=== PATIENT | female | born 1935 | race Caucasian/White ===

== ENCOUNTER → 2018-09-01 | Outpatient (CLI) | payer MEDICARE, OTHER ==
[~2018-09-01] MED LIST: DENOSUMAB 60 MG/ML 1 ML SYRINGE SQ PRN
[2018-09-01 10:25] VITALS: BP 154/73; PULSE 57; RESP 16; TEMP 97.8
== END | disposition home or self-care (01) ==
LOC: PROCWHC3 10:00
PROVIDERS: ATTEND Internal Medicine
DX: M81.0 Age-related osteoporosis without current pathological fracture (principal)
CPT/HCPCS: 96372; J0897

== ENCOUNTER → 2019-03-02 | Outpatient (CLI) | payer MEDICARE, OTHER ==
[~2019-03-02] MED LIST changes: +DENOSUMAB 60 MG/ML 1 ML SYRINGE SQ NR; -DENOSUMAB 60 MG/ML 1 ML SYRINGE SQ PRN
[2019-03-02 11:17] VITALS: BP 150/70; PULSE 61; RESP 16; TEMP 97.8
== END | disposition home or self-care (01) ==
LOC: PROCWHC3 11:02
PROVIDERS: ATTEND Internal Medicine
DX: M81.0 Age-related osteoporosis without current pathological fracture (principal)
CPT/HCPCS: 96372; J0897

== ENCOUNTER → 2019-09-13 | Outpatient (CLI) | payer MEDICARE, OTHER ==
[2019-09-13 11:16] VITALS: BP 117/53; PULSE 52; RESP 16; TEMP 98.4
== END ==
LOC: PROCWHC3 10:51
PROVIDERS: ATTEND Internal Medicine
DX: M81.0 Age-related osteoporosis without current pathological fracture (principal)
CPT/HCPCS: 96372; J0897

== ENCOUNTER → 2020-03-29 | Outpatient (CLI) | payer MEDICARE, OTHER ==
[2020-03-29 13:56] VITALS: BP 161/85; PULSE 66; RESP 16; TEMP 98.3
== END | disposition home or self-care (01) ==
LOC: PROCWHC3 13:31
PROVIDERS: ATTEND Internal Medicine
DX: M81.0 Age-related osteoporosis without current pathological fracture (principal)
CPT/HCPCS: 96372; J0897

== ENCOUNTER → 2020-10-17 | Outpatient (CLI) | payer MEDICARE, OTHER ==
[2020-10-17 14:15] VITALS: BP 93/60; PULSE 61; RESP 18; TEMP 97.6
== END | disposition home or self-care (01) ==
LOC: PROCWHC3 13:46
PROVIDERS: ATTEND Internal Medicine
DX: M81.0 Age-related osteoporosis without current pathological fracture (principal)
CPT/HCPCS: 96372; J0897

== ENCOUNTER → 2021-03-26 | Outpatient (CLI) | payer MEDICARE, OTHER ==
--- NOTE | 2021-03-26 10:52 | US ---
EXAMINATION TYPE: US venous doppler duplex LE DATE OF EXAM: 03/26/2021 9:38 AM COMPARISON: NONE CLINICAL HISTORY: L89.893 Pressure ulcer of other site, stage 3. SIDE PERFORMED: Bilateral TECHNIQUE: The lower extremity deep venous system is examined utilizing real time linear array sonog homero with graded compression, doppler sonography and color-flow sonography. VESSELS IMAGED: Common Femoral Vein Deep Femoral Vein Greater Saphenous Vein * Femoral Vein Popliteal Vein Proximal Calf Veins (* superficial vessels) Right Leg: Appears negative for DVT Left Leg: Appears negative for DVT IMPRESSION: No sonographic evidence for deep vein thrombosis of either lower extremity.
--- NOTE | 2021-03-27 09:55 | P.ARTDOP ---
Arterial Doppler LOWER EXTREMITY ARTERIAL DOPPLER: DATE OF SERVICE: 03/26/2021 Reason for study: Right foot ulcer. Doppler waveforms: Multiphasic at the right femoral and popliteal and throughout on the left.. Pulse volume recording: []. Pressure gradients: Only at the foot level. Ankle-brachial indices: Cannot occlude. 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 Waveforms suggest only mild effect on flow of occlusive disease. Clinical correlation recommended
== END | disposition home or self-care (01) ==
LOC: RADUSWWP 09:04
PROVIDERS: ATTEND Internal Medicine Infectious Disease
DX: L89.893 Pressure ulcer of other site, stage 3 (principal)
CPT/HCPCS: 93922; 93970

== ENCOUNTER → 2022-06-04 | Outpatient (CLI) | payer MEDICARE, OTHER ==
--- NOTE | 2022-06-04 14:31 | US ---
EXAMINATION TYPE: US venous doppler duplex LE DATE OF EXAM: 06/04/2022 1:52 PM COMPARISON: US CLINICAL HISTORY: E11.621 TYPE 2 DM. Swelling SIDE PERFORMED: Bilateral TECHNIQUE: The lower extremity deep venous system is examined utilizing real time linear array sonog homero with graded compression, doppler sonography and color-flow sonography. VESSELS IMAGED: Common Femoral Vein Deep Femoral Vein Greater Saphenous Vein * Femoral Vein Popliteal Vein Small Saphenous Vein * Proximal Calf Veins (* superficial vessels) Right Leg: Negative for DVT Left Leg: Negative for DVT IMPRESSION: No evidence for DVT.
--- NOTE | 2022-06-05 06:36 | US ---
EXAMINATION TYPE: US arterial LE single level DATE OF EXAM: 06/04/2022 2:25 PM CLINICAL HISTORY: E11.621 TYPE 2 DM. DM, non-healing would left great toe. History of hypertension an d diabetes. Comparison: Prior study 13 days earlier Doppler Waveforms: Right: Predominantly biphasic Left: Predominantly biphasic Ankle-Brachial Indices: Right: 1.37 Left: 1.45 Toe Brachial Indices: Right: 0.7 Left: Unable to obtain pressure due to left great toe wrapped, and non-healing wound IMPRESSION: Improved phasicity on current study. Elevated left BEN value which was within normal bo its on recent study. Normal right sided TBI redemonstrated. Cannot evaluate left foot similar to vel negron
== END | disposition home or self-care (01) ==
LOC: RADUSWWP 13:19
PROVIDERS: ATTEND Family Medicine
DX: E11.621 Type 2 diabetes mellitus with foot ulcer (principal); L97.525 Non-pressure chronic ulcer of other part of left foot with muscle involvement without evidence of necrosis; M20.42 Other hammer toe(s) (acquired), left foot; F03.90 Unspecified dementia, unspecified severity, without behavioral disturbance, psychotic disturbance, mood disturbance, and anxiety
CPT/HCPCS: 93922; 93970

== ENCOUNTER 2022-07-18 08:50 | Day surgery (SDC) | payer MEDICARE, OTHER ==
[~2022-07-18 08:50] MED LIST changes: -DENOSUMAB 60 MG/ML 1 ML SYRINGE SQ NR; +HYDROmorphone 0.5 MG/0.5 ML SYRINGE IVP PRN; +LACTATED RINGERS 1,000 ML IV SCH; +MIDAZOLAM 2 MG/2 ML VIAL IV PRN; +ONDANSETRON 4 MG/2 ML VIAL IVP ONE
[2022-07-18 09:48] LABS: Glucose,Whole Blood 128 mg/dL (70-110)
[2022-07-18] MEDS ORDERED: LACTATED RINGERS 1,000 ML IV ONE ×2 (09:55)
[2022-07-18] MEDS ORDERED: PROPOFOL 10 MG/ML 20 ML VIAL IV ONE (10:07)
[2022-07-18] MEDS ORDERED: MIDAZOLAM 2 MG/2 ML VIAL ONE (10:07)
[2022-07-18] MEDS ORDERED: diphenhydrAMINE 50 MG/ML 1 ML VIAL ONE (10:07)
[2022-07-18] MEDS ORDERED: SODIUM CHLORIDE 0.9% 50 ML with ceFAZolin 1,000 MG IV ONE ×2 (10:10)
[2022-07-18] MEDS ORDERED: BUPIVACAINE (PF) 0.25% 30 ML VIAL SQ ONE (10:16)
[2022-07-18 10:49] VITALS: TEMP 97.1
[2022-07-18 11:58] VITALS: BP 142/64; PULSE 51; RESP 18
--- NOTE | 2022-07-18 12:24 | P.OP ---
Date of Procedure: 07/18/22 Preoperative Diagnosis: Deformity left second toe Postoperative Diagnosis: Same Procedure(s) Performed: Amputation of the second toe at the metatarsophalangeal joint Implants: None Anesthesia: MAC, local Surgeon: Jaime Lynne Estimated Blood Loss (ml): 2 Pathology: none sent Condition: stable Disposition: PACU Description of Procedure: The patient was brought into the operating room and kept on her transfer gurney. Timeout was taken to confirm correct patient identifiers, correct laterality of surgery, and correct procedure. When all staff in the room were in agreement with the timeout, the patient was placed under sedation anesthesia. 10 mL 0.25% Marcaine was injected into the foot proximal to the second digit. The left foot was then prepped and draped in usual manner. The foot was exsanguinated with an Esmarch bandage and the bandage was left at the ankle to act as a tourniquet. Attention was directed the base of the second toe, where 2 semi-elliptical converging incisions were made from dorsal to plantar, making sure there was a dequate skin for closure. The incision was deepened down to the subcutaneous layer where a large cautery was used to cauterize any bleeding vessels. Then dissection was continued down to the proximal phalanx and then dissected down to the metatarsal phalangeal joint. The capsule at the second metatarsal phalangeal joint was sharply incised and the second digit disarticulated. Any bleeding vessels were cauterized at that time. The wound is thoroughly irrigated with antibiotic saline. The skin was closed with 3-0 nylon. An Arthrex jumpstart dressing was applied over the incision then a bulky dry dressing applied to the foot. The tourniquet was released and capillary refill return to all digits on the left foot. The patient tolerated the above procedure and anesthesia well. The patient left the operating room to recovery with vital signs stable
== END 2022-07-18 12:51 | disposition home or self-care (01) ==
LOC: OR 08:50
PROVIDERS: ATTEND Podiatrist
DX: M20.62 Acquired deformities of toe(s), unspecified, left foot (principal); I10 Essential (primary) hypertension; E10.9 Type 1 diabetes mellitus without complications; Z88.2 Allergy status to sulfonamides; Z88.6 Allergy status to analgesic agent; Z87.891 Personal history of nicotine dependence
CPT/HCPCS: 28820; J2250; J1200; J2405; J0690; J2704

== ENCOUNTER 2022-09-27 17:59 | Inpatient (IN) | payer MEDICARE, OTHER ==
--- NOTE | 2022-09-27 18:42 | XR ---
EXAMINATION TYPE: XR chest 1V DATE OF EXAM: 09/27/2022 COMPARISON: NONE HISTORY: Preop clearance TECHNIQUE: Single view FINDINGS: Heart is enlarged. There is coarsening of interstitial markings. No heart failure. There ar e no hilar masses. There is slight blunting left costophrenic angle. There are clips over the left br east. IMPRESSION: Mild cardiomegaly. Mild pulmonary fibrosis. No acute lung disease.
[2022-09-27] MEDS ORDERED: HYDROmorphone 0.5 MG/0.5 ML SYRINGE IVP PRN (18:43)
[2022-09-27] MEDS ORDERED: NALOXONE 0.4 MG/ML 1 ML VIAL IV PRN (18:43)
[2022-09-27] MEDS ORDERED: ONDANSETRON 4 MG/2 ML VIAL IVP PRN (18:43)
--- NOTE | 2022-09-27 18:44 | XR ---
EXAMINATION TYPE: XR Hip LT and AP Pelvis DATE OF EXAM: 09/27/2022 COMPARISON: NONE HISTORY: Fall. Pain TECHNIQUE: 3 views FINDINGS: There is an acute impacted subcapital fracture left femur. No dislocation. Pelvic ring is i ntact. The acetabula appear intact IMPRESSION: Acute impacted displaced subcapital fracture left femur.
--- NOTE | 2022-09-27 18:44 | ED ---
Fall HPI - General Chief Complaint: Fall Stated Complaint: Fall Time Seen by Provider: 09/27/22 18:04 Source: patient, EMS Mode of arrival: EMS Limitations: physical limitation - History of Present Illness Initial Comments: 86-year-old female presents emergency Department chief complaint of trip and fall. Patient states she's also balance falling onto her left hip. Patient complains of left hip pain. Patient states that she did bump her head but hasn't went to headache, neck pain no other extremity injury. Patient states she [facility] due to overcrowding. Patient states that she's had no prior hip issues. Denies any paresthesias declines pain meds. - Related Data Home Medications Medication Instructions Recorded Confirmed Carbidopa-Levodopa 25-100 mg 1 tab PO TID@0800,1300,199905/21/22 07/16/22 [Sinemet 25-100 mg] Famotidine 20 mg PO BID@0800,199905/21/22 07/16/22 Furosemide [Lasix] 20 mg PO DAILY@0800 05/21/22 07/16/22 Irbesartan [Avapro] 150 mg PO DAILY@0800 05/21/22 07/16/22 Metoprolol Succinate (ER) [Toprol 25 mg PO DAILY@0800 05/21/22 07/16/22 XL] Vit C/E/Zn/Coppr/Lutein/Zeaxan 1 tab PO BID@0800,199905/21/22 09/27/22 [Preservision Areds 2 Chew Tab] amLODIPine [Norvasc] 5 mg PO HS@199905/21/22 09/27/22 carBAMazepine [TEGretol] 200 mg PO BID@0800,199905/21/22 07/16/22 cloNIDine HCL [Catapres] 0.1 mg PO DAILY@0800 05/21/22 07/16/22 Aspirin 81 mg PO HS@199907/16/22 07/16/22 Acetaminophen Tab [Tylenol] 650 mg PO Q6H PRN 09/27/22 09/27/22 Denosumab [Prolia] 60 mg SQ DIRECTED 09/27/22 09/27/22 Prevagen Chew Mixed Barber 30 1 tab PO DAILY@0800 09/27/22 Refresh Optive Gel Drops 1 drop BOTH EYES TID@0800,1300,199909/27/22 Allergies Allergy/AdvReac Type Severity Reaction Status Date / Time Sulfa (Sulfonamide Allergy Swelling Verified 09/27/22 18:05 Antibiotics) Tetracyclines Allergy Unknown Verified 09/27/22 18:05 Review of Systems ROS Statement: Those systems with pertinent positive or pertinent negative responses have been documented in the HPI. ROS Other: All systems not noted in ROS Statement are negative. Past Medical History Past Medical History: Cancer, Diabetes Mellitus, GERD/Reflux, Hypertension, Memory Impairment Additional Past Medical History / Comment(s): BREAST CANCER WITH RADIATION [place], parkinsons,seen at wound center open infection to left grt toe. left 2nd hammer toe ( RN at [facility] states pt does not feel any discomfort to left foot). OSTEOPOROSIS. "SWELLING IN FEET". History of Any Multi-Drug Resistant Organisms: None Reported Past Surgical History: Bowel Resection, Tonsillectomy Additional Past Surgical History / Comment(s): ILEOSTOMY, partial mastectomy Past Anesthesia/Blood Transfusion Reactions: No Reported Reaction Past Psychological History: Depression Smoking Status: Former smoker Past Alcohol Use History: None Reported - Past Family History Mother Additional Family Medical History / Comment(s): in 50s heart Father Additional Family Medical History / Comment(s): alzheimer General Exam Limitations: no limitations General appearance: alert, in no apparent distress Head exam: Present: atraumatic, normocephalic, normal inspection Eye exam: Present: normal appearance, PERRL, EOMI. Absent: scleral icterus, conjunctival injection, periorbital swelling Neck exam: Present: normal inspection, full ROM. Absent: tenderness, meningismus, lymphadenopathy Respiratory exam: Present: normal lung sounds bilaterally. Absent: respiratory distress, wheezes, rales, rhonchi, stridor Cardiovascular Exam: Present: regular rate, normal rhythm, normal heart sounds. Absent: systolic murmur, diastolic murmur, rubs, gallop, clicks Extremities exam: Present: other (Left hip there is some shortening, tenderness with palpation, neurovascular intact) Neurological exam: Present: alert, oriented X3, CN II-XII intact, reflexes normal. Absent: motor sensory deficit Skin exam: Present: warm, dry, intact, normal color. Absent: rash Course Vital Signs 09/27/22 18:02 Temperature 97.5 F L Pulse Rate 57 L Respiratory 16 Rate Blood Pressure 171/75 O2 Sat by Pulse 98 Oximetry Medical Decision Making - Medical Decision Making 86-year-old presented for a fall. CT of brain, C-spine And me and radiology no acute process. Patient hip x-ray interpreted by me shows evidence of left hip fracture, warm and fracture. Patient's case discussed with Dr. James accepts admission with consult to medicine - EKG Data -: EKG Interpreted by Me Disposition Clinical Impression: Fall, Fracture of left hip Disposition: ADMITTED IP TO THIS HOSP Condition: Fair Time of Disposition: 18:42
--- NOTE | 2022-09-27 19:29 | CT ---
EXAMINATION TYPE: CT brain yannick verma con DATE OF EXAM: 09/27/2022 COMPARISON: None HISTORY: Pt slipped on floor and fell backwards, hitting head, no LOC. CT DLP: 1278.1 mGycm Automated exposure control for dose reduction was used. Images of the brain and cervical spine obtained with no contrast. There is diffuse cerebral cortical atrophy. There is no mass effect or midline shift. No sign of intr acranial hemorrhage. There is patchy hypodensity in the periventricular white matter. The calvarium is intact. The skull base is intact. There is normal aeration of the mastoid sinuses. The cervical vertebra show mild straightening. There is degenerative disc space narrowing throughout the cervical spine. No compression fracture. There is mild multilevel cervical hypertrophic facet art hropathy. Prevertebral soft tissues are intact. No focal bone destruction. IMPRESSION: Mild multilevel cervical spondylotic changes. No fracture. Cerebral atrophy and chronic small vessel ischemia. No acute intracranial abnormality.
[2022-09-27 19:54] LABS: Basophils % (A) 1 %; Eosinophils # (A) 0.1 k/uL (0-0.7); Eosinophils % (A) 2 %; HCT 42.2 % (34.0-46.0); HGB 14.2 gm/dL (11.4-16.0); Lymphocytes % (A) 14 %; MCH 33.1 pg (25.0-35.0); MCHC 33.6 g/dL (31.0-37.0); MCV 98.7 fL (80.0-100.0); Mean Platelet Volume 8.4; Monocytes # (A) 0.6 k/uL (0-1.0); Monocytes % (A) 8 %; Neutrophils # (A) 5.6 k/uL (1.3-7.7); Neutrophils % (A) 75 %; Platelet Count 186 k/uL (150-450); RBC 4.27 m/uL (3.80-5.40); RDW 12.3 % (11.5-15.5); WBC 7.5 k/uL (3.8-10.6)
[2022-09-27 20:11] LABS: Albumin 4.2 g/dL (3.5-5.0); Calcium 9.5 mg/dL (8.4-10.2); Potassium 3.8 mmol/L (3.5-5.1); Total Bilirubin 0.5 mg/dL (0.2-1.3)
[2022-09-27 22:38] LABS: Appearance,Urine Clear (Clear); Bacteria,Urine Rare /hpf; Bilirubin,Urine Negative (Negative); Blood,Urine Negative (Negative); Color,Urine Colorless; Glucose,Urine (UA) Negative (Negative); Hyaline Casts,Urine 10 /lpf (0-2); Ketones,Urine Negative (Negative); Leukocyte Esterase,Urine Small (Negative); Mucus,Urine Rare /hpf; Nitrite,Urine Negative (Negative); Protein,Urine Negative (Negative); RBC,Urine 1 /hpf (0-5); Specific Gravity,Urine 1.009 (1.001-1.035); Urobilinogen,Urine <2.0 mg/dL (<2.0); WBC,Urine 5 /hpf (0-5)
[2022-09-28] MEDS ORDERED: ACETAMINOPHEN TAB 325 MG TAB PO PRN (09:36)
--- NOTE | 2022-09-28 10:05 | P.HPOR ---
History of Present Illness H&P Date: 09/28/22 Chief Complaint: Left hip fracture The patient is a 86-year-old female who presented to the emergency department yesterday after sustaining a fall at home. She states that she was trying to put on socks and fell. She didn't hit her head. Upon exam in the emergency department she was found to have a left femoral neck fracture. CT of the head and neck was negative for fracture or bleed. The patient was admitted to orthopedics for further care of the left hip fracture. Internal medicine was consulted for surgical clearance. Patient states that she does use a walker home. The patient son is at the bedside this morning. She is having left hip pain as expected. Denies any other injuries. Review of Systems Constitutional: Denies chills, Denies fatigue, Denies fever Cardiovascular: Denies chest pain, Denies shortness of breath Respiratory: Denies cough Gastrointestinal: Denies diarrhea, Denies nausea, Denies vomiting Musculoskeletal: left: hip pain, hip stiffness, hip swelling Past Medical History Past Medical History: Cancer, Diabetes Mellitus, GERD/Reflux, Hypertension, Gianni ry Impairment Additional Past Medical History / Comment(s): BREAST CANCER WITH RADIATION [place], parkinsons,seen at wound center open infection to left grt toe. left 2nd hammer toe ( RN at [facility] states pt does not feel any discomfort to left foot). OSTEOPOROSIS. "SWELLING IN FEET". History of Any Multi-Drug Resistant Organisms: None Reported Past Surgical History: Bowel Resection, Tonsillectomy Additional Past Surgical History / Comment(s): ILEOSTOMY, partial mastectomy Past Anesthesia/Blood Transfusion Reactions: No Reported Reaction Past Psychological History: Depression Smoking Status: Former smoker Past Alcohol Use History: None Reported - Past Family History Mother Additional Family Medical History / Comment(s): in 50s heart Father Additional Family Medical History / Comment(s): alzheimer Medications and Allergies Home Medications Medication Instructions Recorded Confirmed Type Carbidopa-Levodopa 25-100 mg 1 tab PO TID@0800,1300,199905/21/22 09/27/22 History [Sinemet 25-100 mg] Famotidine 20 mg PO BID@0800,199905/21/22 09/27/22 History Furosemide [Lasix] 20 mg PO DAILY@0800 05/21/22 09/27/22 History Irbesartan [Avapro] 150 mg PO DAILY@0800 05/21/22 09/27/22 History Metoprolol Succinate (ER) [Toprol 25 mg PO DAILY@0800 05/21/22 09/27/22 History XL] Vit C/E/Zn/Coppr/Lutein/Zeaxan 1 tab PO BID@0800,199905/21/22 09/27/22 History [Preservision Areds 2 Chew Tab] amLODIPine [Norvasc] 5 mg PO HS@199905/21/22 09/27/22 History carBAMazepine [TEGretol] 200 mg PO BID@0800,199905/21/22 09/27/22 History cloNIDine HCL [Catapres] 0.1 mg PO DAILY@00 05/21/22 09/27/22 History Aspirin 81 mg PO HS@199907/16/22 09/27/22 History Acetaminophen Tab [Tylenol] 650 mg PO Q6H PRN 09/27/22 09/27/22 History Denosumab [Prolia] 60 mg SQ DIRECTED 09/27/22 09/27/22 History Prevagen Chew Mixed Barber 30 1 tab PO DAILY@0800 09/27/22 09/27/22 History Refresh Optive Gel Drops 1 drop BOTH EYES TID@0800,1300,199909/27/22 09/27/22 History Allergies Allergy/AdvReac Type Severity Reaction Status Date / Time Sulfa (Sulfonamide Allergy Swelling Verified 09/27/22 19:43 Antibiotics) Tetracyclines Allergy Unknown Verified 09/27/22 19:43 Physical Examination The patient is a 86 year old female that is no acute distress. She is alert and oriented x3. The patient's head is normocephalic and atraumatic. Exam of the cervical spine reveals no pain upon palpation or range of motion. Exam of the bilateral upper extremities reveal no obvious deformities or pain upon range of motion. Exam of the right lower extremity reveals no pain upon palpation. Exam of the left lower extremity reveals a externally rotated and shortened leg. No pain upon palpation to the lateral hip. There is pain upon logrolling and any range of motion of the leg. Bilateral calves are soft and nontender. Patient has good foot and ankle motion bilaterally. Neurological and circulatory status is intact. Results X-rays of the left hip reveal a femoral neck fracture. - Labs Labs: Abnormal Lab Results - Last 24 Hours (Table) 09/27/22 09/27/22 Range/Units 19:37 21:18 BUN 51 H (7-17) mg/dL Glucose 130 H (74-99) mg/dL Ur Leukocyte Esterase Small H (Negative) Urine Bacteria Rare H (None) /hpf Hyaline Casts 10 H (0-2) /lpf Urine Mucus Rare H (None) /hpf H & H 09/27/22 Range/Units 19:37 Hgb 14.2 (11.4-16.0) gm/dL Hct 42.2 (34.0-46.0) % Result Diagrams: 09/27/22 19:37 09/27/22 19:37 Assessment and Plan (1) Fall Current Visit: Yes Status: Acute Code(s): W19.XXXA - UNSPECIFIED FALL, INITIAL ENCOUNTER SNOMED Code(s): 5063110 (2) Fracture of left hip Current Visit: Yes Status: Acute Code(s): S72.002A - FRACTURE OF UNSP PART OF NECK OF LEFT FEMUR, INIT SNOMED Code(s): 210994147 Plan: The clinical and x-ray findings were discussed with the patient and her son. The case was discussed at length with Dr. James. Treatment options were discussed and surgical intervention is recommended. We discussed the surgical plan as well as the expected postoperative course. Risks and benefits were reviewed including (but not limited to) the risks of infection, dislocation, bleeding, blood clots, anesthesia-related complications and possible need for additional surgery. Questions were invited and answered. The patient expressed understanding and wishes to proceed with surgery. The patient will be kept on bedrest. Continue PRN pain management. NPO at midnight tonight. She is scheduled for a left hip hemiarthroplasty tomorrow. We will await pre-op clearance from internal medicine.
[2022-09-28] MEDS: HYDROcodone/APAP 5-325MG 1 EACH TAB PO PRN ×2 (11:39→16:41)
[2022-09-28] MEDS: ARTIFICIAL TEARS OINTMENT 3.5 GM TUBE BOTH EYES SCH ×2 (11:41→20:23)
[2022-09-28] MEDS: CARBIDOPA-LEVODOPA 25-100 MG 1 EACH TAB PO SCH ×2 (11:43→20:23)
[2022-09-28] MEDS: FAMOTIDINE 20 MG TAB PO SCH (20:23)
[2022-09-28] MEDS: VIT A,C & E-LUTEIN-MINERALS 1 EACH TAB PO SCH (20:23)
[2022-09-28] MEDS: amLODIPine 5 MG TAB PO SCH (20:23)
[2022-09-28] MEDS: carBAMazepine 200 MG TAB PO SCH (20:23)
--- NOTE | 2022-09-28 22:10 | CONS ---
CONSULTATION REASON FOR CONSULTATION: Advice regarding diabetes and multiple medical issues requested by [facility]. HISTORY OF PRESENT ILLNESS: This is an 86-year-old woman with a past medical history of diabetes mellitus, hypertension, being followed by Dr. Sofia Estrada, was living in an assisted living. Patient apparently slipped and fell and suffered a left hip fracture, admitted for further evaluation. There is no history of fever, rigors, chills. The patient is rather coherent and basic labs are acceptable. There is no history of fever, rigors, chills. PAST MEDICAL HISTORY: Reviewed, include diabetes mellitus, hypertension. Rest of history and rest of the chart also reviewed. HOME MEDICATIONS: Once again reviewed include clonidine, dose and rest of medications reviewed. ALLERGIES: Sulfa. FAMILY HISTORY: History of heart disease in the family. SOCIAL HISTORY: Previous history of smoking. REVIEW OF SYSTEMS: A 14-point review is negative as mentioned earlier. PHYSICAL EXAMINATION: VITAL SIGNS: Pulse is 83, blood pressure 152/74, respirations 18. HEENT: Conjunctivae normal. CARDIOVASCULAR: Normal expiration at the bases. No rhonchi. No crackles. ABDOMEN: Soft, nontender. LEGS: Status post left hip fracture. NERVOUS SYSTEM: Nonfocal. SKIN: No ulcer, rash, bleeding. JOINTS: No active deforming arthropathy. LABORATORY DATA: CBC within normal limits. The rest of the labs are noted. ASSESSMENT: 1. Status post left hip fracture. 2. Diabetes mellitus, type 2. 3. Hypertension. 4. History of memory impairment. 5. History of breast cancer. 6. Multiple medical issues. RECOMMENDATIONS: This 86-year-old woman presented with a left hip fracture, is medically stable at this time. I would clear the patient for surgery with some added risk because of the patient's advanced age and other medical issues, but however, we will monitor the patient closely. Optimize treatment. Incentive spirometry. DVT prophylaxis. We will follow the patient closely with you and patient has to follow up with primary physician post discharge. MMODL / IJN: [id number] /
[2022-09-29] MEDS ORDERED: [UNRECOGNIZED DRUG - OTHER] PO SCH (08:00)
[2022-09-29] MEDS: METOPROLOL SUCCINATE (ER) 25 MG TAB.ER.24H PO SCH (08:28)
[2022-09-29] MEDS: LOSARTAN 50 MG TAB PO SCH (08:28)
[2022-09-29] MEDS: CARBIDOPA-LEVODOPA 25-100 MG 1 EACH TAB PO SCH ×3 (08:29→20:32)
[2022-09-29] MEDS: HYDROcodone/APAP 5-325MG 1 EACH TAB PO PRN (08:29)
[2022-09-29] MEDS: carBAMazepine 200 MG TAB PO SCH ×2 (08:29→20:32)
[2022-09-29] MEDS: FUROSEMIDE 20 MG TAB PO SCH (08:29)
[2022-09-29] MEDS: cloNIDine HCL 0.1 MG TAB PO SCH (08:29)
[2022-09-29 09:14] LABS: Basophils # (A) 0.04 X 10*3/uL (0.00-0.10); Basophils % (A) 0.4 %; Eosinophils # (A) 0.11 X 10*3/uL (0.04-0.35); Eosinophils % (A) 1.1 %; HCT 40.8 % (37.2-46.3); HGB 13.5 g/dL (12.0-15.0); Immature Grans, Automated 0.2 %; Lymphocytes # (A) 1.32 X 10*3/uL (0.90-5.00); Lymphocytes % (A) 12.7 %; MCH 33.3 pg (27.0-32.0); MCHC 33.1 g/dL (32.0-37.0); MCV 100.5 fL (80.0-97.0); Monocytes # (A) 0.97 X 10*3/uL (0.20-1.00); Monocytes % (A) 9.3 %; NRBC Per 100 WBC 0 /100 WBCS (0.0-0.0); Neutrophils # (A) 7.92 X 10*3/uL (1.80-7.70); Neutrophils % (A) 76.3 %; Platelet Count 172 X 10*3/uL (140-440); RBC 4.06 X 10*6/uL (4.10-5.20); RDW 12.6 % (11.5-14.5); WBC 10.38 X 10*3/uL (4.50-10.00)
[2022-09-29 09:25] LABS: African American GFR (CKD) 71.4 (60.0-200.0); Anion Gap 10.3 mmol/L (10.00-18.00); Calcium 9.3 mg/dL (8.7-10.3); Carbon Dioxide 28.2 mmol/L (20.0-27.5); Non-African American GFR(CKD) 61.6 (60.0-200.0); Potassium 3.4 mmol/L (3.5-5.5)
[2022-09-29] MEDS: ARTIFICIAL TEARS OINTMENT 3.5 GM TUBE BOTH EYES SCH ×3 (09:45→20:31)
[2022-09-29] MEDS: VIT A,C & E-LUTEIN-MINERALS 1 EACH TAB PO SCH ×2 (10:02→20:32)
[2022-09-29] MEDS: FAMOTIDINE 20 MG TAB PO SCH (10:02)
[2022-09-29] MEDS ORDERED: Potassium Replacement Protocol 1 EACH MISC MISCELLANE PRN ×2 (10:27→12:03)
[2022-09-29] MEDS: POTASSIUM CHLORIDE 10 MEQ in WATER FOR INJECTION 1 100ML.BAG IVPB SCH ×4 (10:49→20:47)
[2022-09-29 11:06] VITALS: BMI 18.8
[2022-09-29 11:33] LABS: INR 1.1 (<1.2); Partial Thromboplastin Time 27.4 sec (22.0-30.0); Prothrombin Time 11.5 sec (9.0-12.0)
[2022-09-29] MEDS ORDERED: Magnesium Replacement Protocol 1 EACH MISC MISCELLANE PRN (12:03)
[2022-09-29 13:06] LABS: Glucose,Whole Blood 129 mg/dL (70-110)
--- NOTE | 2022-09-29 13:16 | P.ANPRN ---
Procedure Note - Anesthesia - Nerve Block Performed Left Onel Single Time Out Performed: Yes Date of Procedure: 09/29/22 Procedure Start Time: 13:06 Procedure Stop Time: 13:12 Location of Patient: PreOp Indication: Acute Post-Operative Pain, Requested by Surgeon Sedation Type: Awake Preparation: Sterile Prep, Sterile Dressing Position: Supine Catheter: None Needle Types: Facet Needle Gauge: 20 Ultrasound used to visualize needle placement: Yes Ultrasound used to observe medication spread: Yes Injectate: 0.5% Ropivacaine (see comment for volume) (20 ml + decadron 4 mg) Blood Aspirated: No Pain Paresthesia on Injection Noted: No Resistance on Injection: Normal Image Stored and Saved: Yes Events: Uneventful and Well Tolerated
[2022-09-29] MEDS ORDERED: IV FLUID CONTINUATION 800 ML IV ONE (13:29)
[2022-09-29] MEDS ORDERED: ROPIVACAINE 5 MG/ML 30 ML VIAL ONE (13:44)
[2022-09-29] MEDS ORDERED: DEXAMETHASONE SOD PHOSPHATE 4 MG/ML 1 ML VIAL ONE (13:44)
[2022-09-29] MEDS ORDERED: MIDAZOLAM 2 MG/2 ML VIAL ONE (13:44)
[2022-09-29] MEDS ORDERED: fentaNYL (PF) 50 MCG/ML 2 ML AMP ONE (13:44)
[2022-09-29] MEDS ORDERED: KETAMINE 10 MG/ML 20 ML VIAL ONE (13:44)
[2022-09-29] MEDS ORDERED: SODIUM CHLORIDE 0.9% 50 ML with ceFAZolin 2,000 MG IV ONE ×2 (14:18)
[2022-09-29] MEDS ORDERED: ceFAZolin 1,000 MG in SODIUM CHLORIDE 0.9% 1,000 ML IRRIGATION ONE (14:30)
[2022-09-29] MEDS ORDERED: MAGNESIUM HYDROXIDE 2,400 MG/10 ML CUP PO PRN (14:36)
[2022-09-29] MEDS ORDERED: LACTATED RINGERS 1,000 ML IV ONE (15:46)
--- NOTE | 2022-09-29 17:41 | XR ---
EXAMINATION TYPE: XR Hip Limited LT DATE OF EXAM: 09/29/2022 5:02 PM INDICATION: Patient age:Female; 86 years old; Reason for study: Status post hip surgery, assess surgical alignment; COMPARISON: None. TECHNIQUE: The left hip was examined in the frontal projection FINDINGS: Post arthroplasty changes, hardware is intact, alignment is appropriate. No evidence of fra cture. Postoperative changes soft tissue. No evidence of any acute osseous pathology or joint disloca tion. IMPRESSION: Total hip arthroplasty with hardware intact and in appropriate alignment. No acute fracture.
[2022-09-29] MEDS: LACTATED RINGERS 1,000 ML IV SCH (17:47)
--- NOTE | 2022-09-29 19:29 | P.OP ---
Date of Procedure: 09/29/22 Preoperative Diagnosis: Left femoral neck fracture Postoperative Diagnosis: left femoral neck fracture Procedure(s) Performed: Left hip hemiarthroplasty Implants: [employer] Polar stem, size 1, collared, 45mm unipolar head, neutral Anesthesia: MAC, spinal Surgeon: Karon James Estimated Blood Loss (ml): 200 Condition: stable Disposition: PACU Indications for Procedure: Patient is an 86yo female who had a GLF. She is a home ambulator with a walker. She has parkinsons. We had a discussion about her treatment options and the patient and her family have elected to proceed with a hip tiffanie. Description of Procedure: The patient, operative extremity, and procedure were confirmed in the preop area. The was then brought back to the OR and a spinal anesthetic was provided. The patient was then moved to the OR and positioned with a rehana positioner with the left hip up. The extremity was then prepped and draped in normal sterile fashion. A longitudinal incision was made over the greater trochanter. The dissection was taken down to the IT band. This was also split longitudinally and extended in line with the fibers of the gluteus anastacio. The gluteus medius was identified below. The posterior two thirds were preserved. The interval between the posterior 2/3 and the anterior 1/3 was developed. This was deepened to include the capsule and was extended distally. The hip was externally rotated and the capsule was freed until the lesser trochanter was palpated. A revised neck cut was made to leave approximately a finger's breadth above the lesser trochanter. The femoral head was then removed. A trial head was inserted and 44mm head showed good suction and stability. All debris was removed from the acetabulum. The femur was then broached. The canal finder, box sealing machine operator, and rat tail broach were used to lateralize. Sequential broaches were used until a size 2 showed good fit. The canal was then prepped for cement. It was irrigated and thoroughly dried. A lap was placed in the acetabulum and cement was mixed. When the appropriate consistency was reached, the cement was inserted with the applicator and pressurized. The final stem, a size 1, was inserted and held in the appropriate version and depth until the cement cured. A trial 44mm head was applied, the lap removed, and the joint was reduced. There was good range of motion with good stability. Leg lengths were still a little short on the injured side but there did not seem to be enough room for more length. The trial was removed and the final implant was impacted into place. Reduction and repeat testing was satisfactory. Several drill holes were made in the greater trochanter and the capsule and abductor repair was performed with #3 ethibond. The IT band was repaired with stratifix. The remainder of the wound was closed in a layered fashion with 2.0 vicryl, 4.0 monocryl, and skin glue. Wound was dressed with a silver dressing.
--- NOTE | 2022-09-29 20:16 | PN ---
PROGRESS NOTE DATE OF SERVICE: 09/29/2022 SUBJECTIVE: This is -hpra-oks woman who was admitted after left hip fracture, is scheduled for surgery today. No chest pain, no palpitations, no fever. PHYSICAL EXAMINATION: VITAL SIGNS: Pulse is 80, blood pressure 140/73, and respirations 18. CHEST: Clear to auscultation. ABDOMEN: Soft. NERVOUS SYSTEM: No focal deficits. LABS: Potassium 3.4. Other labs are noted. ASSESSMENT: 1. Status post left hip fracture. 2. Diabetes mellitus, type 2. 3. Hypertension. 4. History of memory impairment. 5. History of breast cancer. 6. Multiple medical issues. RECOMMENDATIONS: Recommended to continue current medications, continue symptomatic treatment. Otherwise, closely follow with surgery. Potassium supplementation. See orders for further details. Further recommendations to follow. MMODL / IJN: [id number] /
[2022-09-29] MEDS: amLODIPine 5 MG TAB PO SCH (20:32)
[2022-09-29] MEDS: SENNOSIDES-DOCUSATE SODIUM 1 EACH TAB PO SCH (20:34)
[2022-09-30] MEDS: HYDROcodone/APAP 5-325MG 1 EACH TAB PO PRN ×2 (00:26→14:53)
[2022-09-30] MEDS ORDERED: SODIUM CHLORIDE 0.9% 500 ML 500 ML IV ONE (03:18)
[2022-09-30 03:27] LABS: Glucose,Whole Blood 141 mg/dL (70-110)
[2022-09-30] MEDS ORDERED: NALOXONE 0.4 MG/ML 10 ML VIAL IVP PRN (03:33)
[2022-09-30 04:27] LABS: African American GFR (CKD) 47 (>60 ml/min/1.73 sqM); Anion Gap 7 mmol/L; Blood Urea Nitrogen 25 mg/dL (7-17); Calcium 8.1 mg/dL (8.4-10.2); Carbon Dioxide 26 mmol/L (22-30); Chloride 102 mmol/L (98-107); Glucose 156 mg/dL (74-99); Magnesium 1.5 mg/dL (1.6-2.3); Non-African American GFR(CKD) 41 (>60 ml/min/1.73 sqM); Potassium 3.9 mmol/L (3.5-5.1); Sodium 135 mmol/L (137-145)
[2022-09-30 04:50] LABS: Basophils % (A) 0 %; Eosinophils % (A) 0 %; HCT 35.3 % (34.0-46.0); HGB 11.8 gm/dL (11.4-16.0); Lymphocytes # (A) 1.2 k/uL (1.0-4.8); Lymphocytes % (A) 11 %; MCHC 33.5 g/dL (31.0-37.0); MCV 98.5 fL (80.0-100.0); Monocytes # (A) 0.7 k/uL (0-1.0); Monocytes % (A) 6 %; Neutrophils # (A) 9.1 k/uL (1.3-7.7); Neutrophils % (A) 81 %; Platelet Count 131 k/uL (150-450); RBC 3.59 m/uL (3.80-5.40); RDW 12.7 % (11.5-15.5); WBC 11.2 k/uL (3.8-10.6)
[2022-09-30 05:23] LABS: ALT 10 U/L (4-34); AST 45 U/L (14-36); Albumin/Globulin Ratio 1.3; Alkaline Phosphatase 64 U/L (38-126); Globulin 2.3 g/dL; Total Bilirubin 0.7 mg/dL (0.2-1.3); Total Protein 5.3 g/dL (6.3-8.2)
[2022-09-30] MEDS ORDERED: FAMOTIDINE 20 MG TAB PO SCH (09:00)
[2022-09-30] MEDS ORDERED: ENOXAPARIN 40 MG/0.4 ML SYRINGE SQ SCH (09:00)
[2022-09-30] MEDS: VIT A,C & E-LUTEIN-MINERALS 1 EACH TAB PO SCH ×2 (09:42→21:40)
[2022-09-30] MEDS: METOPROLOL SUCCINATE (ER) 25 MG TAB.ER.24H PO SCH (09:42)
[2022-09-30] MEDS: cloNIDine HCL 0.1 MG TAB PO SCH (09:42)
[2022-09-30] MEDS: FUROSEMIDE 20 MG TAB PO SCH (09:42)
[2022-09-30] MEDS: PANTOPRAZOLE 40 MG TABLET PO SCH (09:42)
[2022-09-30] MEDS: ARTIFICIAL TEARS OINTMENT 3.5 GM TUBE BOTH EYES SCH ×3 (09:43→21:41)
[2022-09-30] MEDS: LOSARTAN 50 MG TAB PO SCH (09:43)
[2022-09-30] MEDS: carBAMazepine 200 MG TAB PO SCH ×2 (09:43→21:40)
[2022-09-30] MEDS: CARBIDOPA-LEVODOPA 25-100 MG 1 EACH TAB PO SCH ×3 (09:43→21:40)
[2022-09-30] MEDS: LACTATED RINGERS 1,000 ML IV SCH ×2 (12:14→16:13)
--- NOTE | 2022-09-30 12:15 | P.PN ---
Subjective Progress Note Date: 09/30/22 Principal diagnosis: Status post left hip hemiarthroplasty This is a 86 year-old female post left hip hemiarthroplasty. This is post-op day 1. The patient was evaluated in the recliner chair at the bedside today. The patient denies nausea, vomiting, abdominal pain, shortness of breath, and chest pain this morning. She states her pain is controlled at this time. Objective - Vital Signs Vital signs: Vital Signs Temp 98.5 F 09/30/22 07:03 Pulse 95 09/30/22 07:03 Resp 17 09/30/22 07:03 BP 121/70 09/30/22 07:03 Pulse Ox 98 09/30/22 07:03 FiO2 Intake & Output 09/29/22 09/30/22 09/30/22 18:59 06:59 18:59 Intake Total 1251 Output Total 1051 351 Balance 200 -351 Weight 49.895 kg Intake: IV 1251 Output: Urine 850 350 Stool 1 1 Estimated Blood Loss 200 Other: Voiding Method Indwelling Catheter Indwelling Catheter Indwelling Catheter - Exam The patient does not appear in acute distress. Alert and orientated x2. Dressing is clean dry and intact. Incision appears fine with no erythema or active drainage. Calf is soft and nontender. Foot and ankle motion is limited bilaterally. Sensation and circulatory status is intact. - Labs CBC & Chem 7: 09/30/22 03:38 09/30/22 03:38 Labs: Abnormal Lab Results - Last 24 Hours (Table) 09/29/22 09/30/22 09/30/22 Range/Units 13:04 03:06 03:38 WBC 11.2 H (3.8-10.6) k/uL RBC 3.59 L (3.80-5.40) m/uL Plt Count 131 L (150-450) k/uL Neutrophils # 9.1 H (1.3-7.7) k/uL Sodium (137-145) mmol/L BUN (7-17) mg/dL Creatinine (0.52-1.04) mg/dL Glucose (74-99) mg/dL POC Glucose (mg/dL) 129 H 141 H (70-110) mg/dL Calcium (8.4-10.2) mg/dL Magnesium (1.6-2.3) mg/dL AST (14-36) U/L Total Protein (6.3-8.2) g/dL Albumin (3.5-5.0) g/dL 09/30/22 Range/Units 03:38 WBC (3.8-10.6) k/uL RBC (3.80-5.40) m/uL Plt Count (150-450) k/uL Neutrophils # (1.3-7.7) k/uL Sodium 135 L (137-145) mmol/L BUN 25 H (7-17) mg/dL Creatinine 1.21 H (0.52-1.04) mg/dL Glucose 156 H (74-99) mg/dL POC Glucose (mg/dL) (70-110) mg/dL Calcium 8.1 L (8.4-10.2) mg/dL Magnesium 1.5 L (1.6-2.3) mg/dL AST 45 H (14-36) U/L Total Protein 5.3 L (6.3-8.2) g/dL Albumin 3.0 L (3.5-5.0) g/dL Assessment and Plan (1) Fall Current Visit: Yes Status: Acute Code(s): W19.XXXA - UNSPECIFIED FALL, INITIAL ENCOUNTER SNOMED Code(s): 1745748 (2) Fracture of left hip Current Visit: Yes Status: Acute Code(s): S72.002A - FRACTURE OF UNSP PART OF NECK OF LEFT FEMUR, INIT SNOMED Code(s): 180969081 Plan: 1. Continue pain control 2. Anticoagulation with Lovenox 3. Continue physical therapy and ambulation 4. Anticipate discharge to skilled rehab in the next 1-2 days.
[2022-09-30] MEDS ORDERED: Magnesium Replacement Protocol 1 EACH MISC MISCELLANE PRN (13:37)
[2022-09-30] MEDS ORDERED: Potassium Replacement Protocol 1 EACH MISC MISCELLANE PRN (13:37)
[2022-09-30] MEDS ORDERED: POTASSIUM CHLORIDE ER 20 MEQ TAB.ER PO SCH (14:00)
[2022-09-30] MEDS: MAGNESIUM SULFATE-D5W PMX 1 GM in DEXTROSE/WATER 1 100ML.BAG IVPB SCH ×2 (14:01→14:54)
[2022-09-30] MEDS: amLODIPine 5 MG TAB PO SCH (20:10)
[2022-09-30] MEDS: SENNOSIDES-DOCUSATE SODIUM 1 EACH TAB PO SCH (21:40)
--- NOTE | 2022-10-01 02:55 | PN ---
PROGRESS NOTE DATE OF SERVICE: 09/30/2022 SUBJECTIVE: This is an 86-year-old woman who was admitted with hip fracture, underwent left hip hemiarthroplasty by Dr. James. The patient is slightly drowsy. No chest pain. No palpitation. OBJECTIVE: VITAL SIGNS: Pulse is 82, blood pressure 108/70, and respirations 16. CHEST: Clear to auscultation. CARDIOVASCULAR: S1, S2. ABDOMEN: Soft. LABORATORY DATA: Reviewed. Creatinine 1.21. ASSESSMENT: 1. Left hip fracture, status post left hip hemiarthroplasty. 2. Diabetes mellitus type 2. 3. Hypertension. 4. History of memory impairment. 5. History of breast cancer. 6. Multiple medical issues. RECOMMENDATIONS: Recommend to continue current management and symptomatic treatment. Otherwise, recommend continuing with gentle hydration and repeat labs in the morning. Further recommendations to follow. MMODL / IJN: [id number] /
[2022-10-01] MEDS: LACTATED RINGERS 1,000 ML IV SCH ×2 (06:23→23:31)
--- NOTE | 2022-10-01 08:30 | P.PN ---
Subjective Progress Note Date: 10/01/22 Principal diagnosis: Status post left hip hemiarthroplasty This is a 86 year-old female post left hip hemiarthroplasty. This is post-op day 2. The patient was evaluated at the bedside today. The patient denies nausea, vomiting, abdominal pain, shortness of breath, and chest pain this morning. She states her pain is controlled at this time. Her temperature is 100 degrees this morning. Objective - Vital Signs Vital signs: Vital Signs Temp 100 F H 10/01/22 07:30 Pulse 78 10/01/22 07:30 Resp 16 10/01/22 07:30 BP 128/73 10/01/22 07:30 Pulse Ox 96 10/01/22 07:30 FiO2 Intake & Output 09/30/22 10/01/22 10/01/22 18:59 06:59 18:59 Intake Total 700 Output Total 200 450 Balance 500 -450 Intake: Intake, IV Titration 700 Amount Lactated Ringers 1,000 ml 500 @ 50 mls/hr IV .Q20H NISHA Rx#:[id number] Magnesium Sulfate-D5w Pmx 200 1 gm In Dextrose/Water 1 100ml.bag @ 100 mls/hr IVPB Q1H NISHA Rx#: [id number] Output: Urine 200 450 Other: Voiding Method Indwelling Catheter Indwelling Catheter - Exam The patient does not appear in acute distress. Alert and orientated x2. Dressing is clean dry and intact. Incision appears fine with no erythema or active drainage. Calf is soft and nontender. Foot and ankle motion is limited bilaterally. Sensation and circulatory status is intact. - Labs CBC & Chem 7: 09/30/22 03:38 09/30/22 03:38 Assessment and Plan (1) Fall Current Visit: Yes Status: Acute Code(s): W19.XXXA - UNSPECIFIED FALL, INITIAL ENCOUNTER SNOMED Code(s): 0674410 (2) Fracture of left hip Current Visit: Yes Status: Acute Code(s): S72.002A - FRACTURE OF UNSP PART OF NECK OF LEFT FEMUR, INIT SNOMED Code(s): 520150640 Plan: 1. Continue pain control. 2. Anticoagulation with Lovenox. 3. Continue physical therapy and ambulation. Weightbearing as tolerated with a walker. 4. Encouraged incentive spirometry and deep breathing. 5. Anticipate discharge to skilled rehab in the next 1-2 days.
[2022-10-01] MEDS: LOSARTAN 50 MG TAB PO SCH (08:45)
[2022-10-01] MEDS: cloNIDine HCL 0.1 MG TAB PO SCH (08:45)
[2022-10-01] MEDS: VIT A,C & E-LUTEIN-MINERALS 1 EACH TAB PO SCH ×2 (08:45→20:37)
[2022-10-01] MEDS: CARBIDOPA-LEVODOPA 25-100 MG 1 EACH TAB PO SCH ×3 (08:45→20:37)
[2022-10-01] MEDS: carBAMazepine 200 MG TAB PO SCH ×2 (08:45→20:37)
[2022-10-01] MEDS: FUROSEMIDE 20 MG TAB PO SCH (08:45)
[2022-10-01] MEDS: ARTIFICIAL TEARS OINTMENT 3.5 GM TUBE BOTH EYES SCH ×3 (08:46→20:38)
[2022-10-01] MEDS: PANTOPRAZOLE 40 MG TABLET PO SCH (08:46)
[2022-10-01] MEDS: METOPROLOL SUCCINATE (ER) 25 MG TAB.ER.24H PO SCH (08:46)
[2022-10-01] MEDS: ENOXAPARIN 40 MG/0.4 ML SYRINGE SQ SCH (08:46)
[2022-10-01] MEDS: HYDROcodone/APAP 5-325MG 1 EACH TAB PO PRN (08:47)
[2022-10-01] MEDS ORDERED: ENOXAPARIN 30 MG/0.3 ML SYRINGE SQ SCH (09:00)
[2022-10-01 10:17] LABS: Basophils # (A) 0.03 X 10*3/uL (0.00-0.10); Basophils % (A) 0.3 %; Eosinophils # (A) 0.03 X 10*3/uL (0.04-0.35); Eosinophils % (A) 0.3 %; HCT 32.5 % (37.2-46.3); HGB 10.6 g/dL (12.0-15.0); Immature Grans, Automated 0.5 %; Lymphocytes # (A) 1.41 X 10*3/uL (0.90-5.00); Lymphocytes % (A) 12.5 %; MCH 33.2 pg (27.0-32.0); MCHC 32.6 g/dL (32.0-37.0); MCV 101.9 fL (80.0-97.0); Monocytes % (A) 12.4 %; NRBC Per 100 WBC 0 /100 WBCS (0.0-0.0); Neutrophils # (A) 8.32 X 10*3/uL (1.80-7.70); Platelet Count 133 X 10*3/uL (140-440); RBC 3.19 X 10*6/uL (4.10-5.20); RDW 12.7 % (11.5-14.5); WBC 11.25 X 10*3/uL (4.50-10.00)
[2022-10-01 10:24] LABS: Magnesium 2.1 mg/dL (1.5-2.4)
[2022-10-01 10:34] LABS: African American GFR (CKD) 35.9 (60.0-200.0); Albumin/Globulin Ratio 1.67 (1.60-3.17); Anion Gap 12.5 mmol/L (10.00-18.00); BUN/Creat Ratio 25.8 Ratio (12.00-20.00); Blood Urea Nitrogen 38.7 mg/dL (9.0-27.0); Calcium 8.3 mg/dL (8.7-10.3); Carbon Dioxide 22.5 mmol/L (20.0-27.5); Globulin 1.8 g/dL (1.6-3.3); Potassium 4.1 mmol/L (3.5-5.5); Total Bilirubin 0.5 mg/dL (0.30-1.20); Total Protein 4.8 g/dL (6.2-8.2)
--- NOTE | 2022-10-01 12:27 | XR ---
EXAMINATION TYPE: XR chest 1V portable DATE OF EXAM: 10/01/2022 COMPARISON: 09/27/2022 INDICATION: Follow-up atelectasis TECHNIQUE: Single frontal view of the chest is obtained. FINDINGS: The heart size is mildly prominent. The pulmonary vasculature is normal. There is some mild increased lung markings in the right apex. Chronic fibrosis could be considered. T here is blunting the left costophrenic angle. Surgical clips are within the left breast region. IMPRESSION: 1. Right upper lobe increased lung markings, stable. Correlate for pulmonary fibrosis.
--- NOTE | 2022-10-01 12:54 | PN ---
PROGRESS NOTE DATE OF SERVICE: 10/01/2022 SUBJECTIVE: This is an 86-year-old woman who was admitted with left hip fracture, being closely monitored. No chest pain, no palpitations, no fever. The patient is running mild fever. OBJECTIVE: VITAL SIGNS: Pulse is 78, blood pressure 130/27, respirations 16. HEENT: Conjunctivae normal. CARDIOVASCULAR: S1, S2. RESPIRATIONS: Diminished at the bases, few scattered rhonchi. ABDOMEN: Soft. NERVOUS SYSTEM: No focal deficits. LABS: WBC 11.25. ASSESSMENT: 1. Status post left hip hemiarthroplasty for left hip fracture. 2. Postoperative fever. 3. Diabetes mellitus, type 2. 4. Hypertension. 5. History of memory impairment. 6. History of breast cancer. 7. Multiple medical issues. RECOMMENDATIONS: Recommended to continue current management and continue symptomatic treatment. Otherwise at this time I will recommend chest x-ray and UA with micro. Continue to monitor. Repeat labs in the morning. Incentive spirometry. Further recommendations to follow. MMODL / IJN: [id number] /
[2022-10-01 17:42] LABS: Appearance,Urine Cloudy (Clear); Bacteria,Urine Rare /hpf; Bilirubin,Urine Negative (Negative); Blood,Urine Moderate (Negative); Color,Urine Yellow; Glucose,Urine (UA) Negative (Negative); Ketones,Urine Negative (Negative); Leukocyte Esterase,Urine Large (Negative); Mucus,Urine Rare /hpf; Nitrite,Urine Negative (Negative); PH, Urine 5.5 (5.0-8.0); Protein,Urine 1+ (Negative); RBC,Urine 19 /hpf (0-5); Specific Gravity,Urine 1.014 (1.001-1.035); Urobilinogen,Urine <2.0 mg/dL (<2.0); WBC,Urine 26 /hpf (0-5)
[2022-10-01] MEDS: SENNOSIDES-DOCUSATE SODIUM 1 EACH TAB PO SCH (20:36)
[2022-10-01] MEDS: amLODIPine 5 MG TAB PO SCH (20:37)
[2022-10-02 07:59] VITALS: RESP 16
--- NOTE | 2022-10-02 08:29 | P.DS ---
Providers Date of admission: 09/27/22 18:49 Expected date of discharge: 10/02/22 Attending physician: Karon James DO Consults: 09/27/22 18:43 Consult Physician Routine Consulting Provider: Kristopher Brown Consult Reason/Comments: Medical management, surgical clearance Do you want consulting provider notified?: Yes Primary care physician: Sofia Estrada - Discharge Diagnosis(es) (1) Fall Current Visit: Yes Status: Acute (2) Fracture of left hip Current Visit: Yes Status: Acute Hospital Course: This is a 86 year old female who presented to the hospital post fall at home and sustained a left hip fracture. The patient was cleared by medicine for surgery. The patient underwent a left hip hemiarthroplasty on 09/29/[address] James. The procedure was performed without complication or sequelae. The patient is doing well postoperatively. Labs and vital signs are stable on the day of discharge. On the day of discharge the patient's hip incision is healing well. There is minimal erythema. There is no drainage noted at this time. There is minimal soft tissue swelling to the hip and thigh. The patient has ok foot and ankle motion without difficulty or pain. Neurovascular status to the left lower extremity is intact. The patient is discharged to skilled rehab in good condition. See medication reconciliation for accurate list of home medications. Pertinent Studies: Laboratory Tests 10/02/22 05:56 WBC 8.96 RBC 2.77 L Hgb 9.1 L Hct 26.9 L Plt Count 135 L Patient Condition at Discharge: Stable Plan - Discharge Summary Discharge Rx Participant: Yes New Discharge Prescriptions: New Enoxaparin [Lovenox] 40 mg SQ DAILY #30 each Sennosides-Docusate Sodium [Senokot-S] 2 tab PO DAILY #30 tablet HYDROcodone/APAP 5-325MG [[place] 5] 1 each PO Q4-6H PRN #30 tab PRN Reason: Pain No Action cloNIDine HCL [Catapres] 0.1 mg PO DAILY@0800 carBAMazepine [TEGretol] 200 mg PO BID@08,1999 amLODIPine [Norvasc] 5 mg PO HS@1999 Famotidine 20 mg PO BID@0800,1999 Metoprolol Succinate (ER) [Toprol XL] 25 mg PO DAILY@0800 Irbesartan [Avapro] 150 mg PO DAILY@0800 Furosemide [Lasix] 20 mg PO DAILY@0800 Vit C/E/Zn/Coppr/Lutein/Zeaxan [Preservision Areds 2 Chew Tab] 1 tab PO BID@799,1999 Prevagen Chew Mixed Barber 30 1 tab PO DAILY@08 Carbidopa-Levodopa 25-100 mg [Sinemet 25-100 mg] 1 tab PO TID@0800,1299,1999 Aspirin 81 mg PO HS@1999 Refresh Optive Gel Drops 1 drop BOTH EYES TID@0800,1299,1999 Denosumab [Prolia] 60 mg SQ DIRECTED Acetaminophen Tab [Tylenol] 650 mg PO Q6H PRN PRN Reason: Mild Pain Or Fever > 100.5 Discharge Medication List Carbidopa-Levodopa 25-100 mg [Sinemet 25-100 mg] 1 tab PO TID@0800,1299,199905/21/22 [History] Famotidine 20 mg PO BID@08,199905/21/22 [History] Furosemide [Lasix] 20 mg PO DAILY@0805/21/22 [History] Irbesartan [Avapro] 150 mg PO DAILY@0805/21/22 [History] Metoprolol Succinate (ER) [Toprol XL] 25 mg PO DAILY@0805/21/22 [History] Vit C/E/Zn/Coppr/Lutein/Zeaxan [Preservision Areds 2 Chew Tab] 1 tab PO BID@08,199905/21/22 [History] amLODIPine [Norvasc] 5 mg PO HS@199905/21/22 [History] carBAMazepine [TEGretol] 200 mg PO BID@799,199905/21/22 [History] cloNIDine HCL [Catapres] 0.1 mg PO DAILY@0805/21/22 [History] Aspirin 81 mg PO HS@199907/16/22 [History] Acetaminophen Tab [Tylenol] 650 mg PO Q6H PRN 09/27/22 [History] Denosumab [Prolia] 60 mg SQ DIRECTED 09/27/22 [History] Prevagen Chew Mixed Barber 30 1 tab PO DAILY@0800 09/27/22 [History] Refresh Optive Gel Drops 1 drop BOTH EYES TID@0800,1299,199909/27/22 [History] Enoxaparin [Lovenox] 40 mg SQ DAILY #30 each 09/30/22 [Rx] Sennosides-Docusate Sodium [Senokot-S] 2 tab PO DAILY #30 tablet 09/30/22 [Rx] HYDROcodone/APAP 5-325MG [[place] 5] 1 each PO Q4-6H PRN #30 tab 10/01/22 [Rx] Follow up Appointment(s)/Referral(s): Karon James DO [Doctor of Osteopathic Medicine] - 2 Weeks Sofia Estrada DO [Primary Care Provider] - 1-2 days Activity/Diet/Wound Care/Special Instructions: Weightbearing as tolerated with walker Keep dressing in place for 7 days unless saturated Hip precautions. Lovenox 40 mg for 4 weeks. May shower Follow up with Dr. Karon James in 2 weeks. Call [facility] with questions or concerns, Discharge Disposition: TRANSFER TO SNF/ECF
[2022-10-02 08:36] LABS: Basophils # (A) 0.01 X 10*3/uL (0.00-0.10); Basophils % (A) 0.1 %; Eosinophils # (A) 0.06 X 10*3/uL (0.04-0.35); Eosinophils % (A) 0.7 %; HCT 26.9 % (37.2-46.3); HGB 9.1 g/dL (12.0-15.0); Immature Grans, Automated 0.3 %; Lymphocytes # (A) 1.09 X 10*3/uL (0.90-5.00); Lymphocytes % (A) 12.2 %; MCH 32.9 pg (27.0-32.0); MCHC 33.8 g/dL (32.0-37.0); MCV 97.1 fL (80.0-97.0); Mean Platelet Volume 10.6 fL (9.5-12.2); Monocytes # (A) 0.85 X 10*3/uL (0.20-1.00); Monocytes % (A) 9.5 %; NRBC Per 100 WBC 0 /100 WBCS (0.0-0.0); Neutrophils # (A) 6.92 X 10*3/uL (1.80-7.70); Neutrophils % (A) 77.2 %; Platelet Count 135 X 10*3/uL (140-440); RBC 2.77 X 10*6/uL (4.10-5.20); RDW 12.8 % (11.5-14.5); WBC 8.96 X 10*3/uL (4.50-10.00)
[2022-10-02 08:42] LABS: African American GFR (CKD) 52.3 (60.0-200.0); Anion Gap 8.6 mmol/L (10.00-18.00); BUN/Creat Ratio 29.73 Ratio (12.00-20.00); Blood Urea Nitrogen 32.7 mg/dL (9.0-27.0); Calcium 7.9 mg/dL (8.7-10.3); Carbon Dioxide 25.4 mmol/L (20.0-27.5); Non-African American GFR(CKD) 45.1 (60.0-200.0); Potassium 3.8 mmol/L (3.5-5.5)
[2022-10-02] MEDS: ARTIFICIAL TEARS OINTMENT 3.5 GM TUBE BOTH EYES SCH ×2 (09:17→13:07)
[2022-10-02] MEDS: FUROSEMIDE 20 MG TAB PO SCH (09:18)
[2022-10-02] MEDS: LOSARTAN 50 MG TAB PO SCH (09:18)
[2022-10-02] MEDS: cloNIDine HCL 0.1 MG TAB PO SCH (09:18)
[2022-10-02] MEDS: ENOXAPARIN 40 MG/0.4 ML SYRINGE SQ SCH (09:18)
[2022-10-02] MEDS: METOPROLOL SUCCINATE (ER) 25 MG TAB.ER.24H PO SCH (09:18)
[2022-10-02] MEDS: PANTOPRAZOLE 40 MG TABLET PO SCH (09:18)
[2022-10-02] MEDS: CARBIDOPA-LEVODOPA 25-100 MG 1 EACH TAB PO SCH ×2 (09:18→13:07)
[2022-10-02] MEDS: carBAMazepine 200 MG TAB PO SCH (09:22)
[2022-10-02] MEDS: HYDROcodone/APAP 5-325MG 1 EACH TAB PO PRN (09:23)
[2022-10-02] MEDS: VIT A,C & E-LUTEIN-MINERALS 1 EACH TAB PO SCH (09:23)
[2022-10-02 13:43] VITALS: BP 86/52; PULSE 82; TEMP 97.6
== END 2022-10-02 18:08 | DRG 522 ==
LOC: EC 17:59 → 4SSUR 18:49 → 5NMEDONC 23:37
PROVIDERS: ADMIT Orthopaedic Surgery Hand Surgery; ATTEND Orthopaedic Surgery Hand Surgery
PROC: 0SRS0J9 Replacement of Left Hip Joint, Femoral Surface with Synthetic Substitute, Cemented, Open Approach (ICD-10-PCS; principal; 2022-09-29 07:38)
DX: S72.012A Unspecified intracapsular fracture of left femur, initial encounter for closed fracture (principal); G20 Parkinson's disease; E11.9 Type 2 diabetes mellitus without complications; I10 Essential (primary) hypertension; M20.42 Other hammer toe(s) (acquired), left foot; M81.0 Age-related osteoporosis without current pathological fracture; R41.3 Other amnesia; R50.82 Postprocedural fever; W01.0XXA Fall on same level from slipping, tripping and stumbling without subsequent striking against object, initial encounter; Y92.009 Unspecified place in unspecified non-institutional (private) residence as the place of occurrence of the external cause; Z79.899 Other long term (current) drug therapy; Z79.82 Long term (current) use of aspirin; Z88.2 Allergy status to sulfonamides; Z88.1 Allergy status to other antibiotic agents; Z87.891 Personal history of nicotine dependence; Z92.3 Personal history of irradiation; Z85.3 Personal history of malignant neoplasm of breast; Z28.311 Partially vaccinated for COVID-19
CPT/HCPCS: 51702; 64447; 70450; 71045; 72125; 73501; 73502; 76942; 80048; 80053; 81001; 83735; 84132; 85025; 85610; 85730; 86850; 86900; 86901; 87040; 87635; 88305; 88311; 93005; 96374; 99285

== ENCOUNTER 2022-12-18 09:36 | Inpatient (IN) | payer MEDICARE, OTHER ==
[2022-12-18 10:14] LABS: Glucose,Whole Blood 198 mg/dL (70-110)
[2022-12-18] MEDS ORDERED: SODIUM CHLORIDE 0.9% 500 ML 500 ML IV ONE ×2 (10:23→12:35)
[2022-12-18] MEDS ORDERED: ACETAMINOPHEN TAB 325 MG TAB PO STA (10:28)
[2022-12-18] MEDS ORDERED: IBUPROFEN 600 MG TAB PO STA (10:28)
[2022-12-18 11:02] LABS: Basophils # (A) 0.1 k/uL (0-0.2); Basophils % (A) 0 %; Eosinophils # (A) 0.1 k/uL (0-0.7); Eosinophils % (A) 1 %; HGB 13.5 gm/dL (11.4-16.0); Lymphocytes # (A) 0.6 k/uL (1.0-4.8); Lymphocytes % (A) 3 %; MCH 33.1 pg (25.0-35.0); MCHC 32.2 g/dL (31.0-37.0); MCV 102.8 fL (80.0-100.0); Macrocytosis Slight; Mean Platelet Volume 8.6; Monocytes # (A) 0.8 k/uL (0-1.0); Monocytes % (A) 5 %; Neutrophils # (A) 16.6 k/uL (1.3-7.7); Neutrophils % (A) 91 %; Platelet Count 193 k/uL (150-450); RBC 4.08 m/uL (3.80-5.40); RDW 14.4 % (11.5-15.5); WBC 18.2 k/uL (3.8-10.6)
[2022-12-18 11:04] LABS: Prothrombin Time 10.7 sec (9.0-12.0)
[2022-12-18 11:12] LABS: Calcium 9.2 mg/dL (8.4-10.2); Total Bilirubin 0.6 mg/dL (0.2-1.3); Total Protein 7.2 g/dL (6.3-8.2)
[2022-12-18 11:15] LABS: Lactic Acid, Venous 2.2 mmol/L (0.7-2.0)
[2022-12-18 11:31] LABS: Partial Thromboplastin Time 18.2 sec (22.0-30.0)
--- NOTE | 2022-12-18 11:46 | ED ---
General Adult HPI - General Source: EMS, RN notes reviewed Mode of arrival: EMS Limitations: altered mental status <Surekha Helton - Last Filed: 12/18/22 20:23> <Jaime Casey - Last Filed: 12/18/22 23:07> - General Chief complaint: Altered Mental Status Stated complaint: AMS Time Seen by Provider: 12/18/22 10:15 - History of Present Illness Initial comments: 87-year-old female presents to the emergency department with a chief complaint of altered mental status. Patient presents via EMS. They report the patient stays at [facility]. EMS reports the patient was eating breakfast when she had a brief episode where she stopped responding to staff and was drooling. Patient is alert and oriented 2 which is her baseline. There are no reported falls or recent injuries. EMS reports patient was febrile and route. History is limited secondary to the patient being altered. (Surekha Helton) - Related Data Home Medications Medication Instructions Recorded Confirmed Carbidopa-Levodopa 25-100 mg 1 tab PO TID@0800,1300,199905/21/22 12/18/22 [Sinemet 25-100 mg] Famotidine 20 mg PO BID@0800,199905/21/22 12/18/22 Furosemide [Lasix] 20 mg PO DAILY@0800 05/21/22 12/18/22 Irbesartan [Avapro] 150 mg PO DAILY@0800 05/21/22 12/18/22 Metoprolol Succinate (ER) [Toprol 25 mg PO DAILY@0800 05/21/22 12/18/22 XL] Vit C/E/Zn/Coppr/Lutein/Zeaxan 1 tab PO BID@0800,199905/21/22 12/18/22 [Preservision Areds 2 Chew Tab] carBAMazepine [TEGretol] 200 mg PO BID@0800,199905/21/22 12/18/22 Aspirin 81 mg PO DAILY@1200 07/16/22 12/18/22 Acetaminophen Tab [Tylenol] 650 mg PO Q6H PRN 09/27/22 12/18/22 Denosumab [Prolia] 60 mg SQ DIRECTED 09/27/22 12/18/22 Prevagen Chew Mixed Barber 30 1 tab PO DAILY@0800 09/27/22 12/18/22 Refresh Optive Gel Drops 1 drop BOTH EYES TID@0800,1300,2000 09/27/22 12/18/22 Ensure Enlive 120 - 237 ml PO TID@0800,1200,1700 12/18/22 12/18/22 HYDROcodone/APAP 5-325MG [Pelham 5] 1 tab PO Q4H PRN 12/18/22 12/18/22 Magic Cup 118 ml PO DAILY@1700 12/18/22 12/18/22 Magnesium Hydroxide [Milk of 7,200 mg PO DAILY PRN 12/18/22 12/18/22 Magnesia Concentrate] Na Phos,M-B/Na Phos,Di-Ba [Fleet 133 ml RECTAL DAILY PRN 12/18/22 12/18/22 Adult] Sennosides-Docusate Sodium 2 tab PO DAILY@0800 12/18/22 12/18/22 [Senokot-S] amLODIPine [Norvasc] 2.5 mg PO HS@2100 12/18/22 12/18/22 bisacodyL [Dulcolax] 10 mg RECTAL DAILY PRN 12/18/22 12/18/22 Allergies Allergy/AdvReac Type Severity Reaction Status Date / Time Sulfa (Sulfonamide Allergy Swelling Verified 12/18/22 11:15 Antibiotics) Tetracyclines Allergy Unknown Verified 12/18/22 11:15 Review of Systems ROS Other: All systems not noted in ROS Statement are negative. <Surekha Helton - Last Filed: 12/18/22 20:23> ROS Other: All systems not noted in ROS Statement are negative. <Jaime Casey - Last Filed: 12/18/22 23:07> ROS Statement: Those systems with pertinent positive or pertinent negative responses have been documented in the HPI. Past Medical History Past Medical History: Cancer, Diabetes Mellitus, GERD/Reflux, Hypertension, Memory Impairment Additional Past Medical History / Comment(s): BREAST CANCER WITH RADIATION [place], parkinsons,seen at wound center open infection to left grt toe. left 2nd hammer toe ( RN at [facility] states pt does not feel any discomfort to left foot). OSTEOPOROSIS. "SWELLING IN FEET". History of Any Multi-Drug Resistant Organisms: None Reported Past Surgical History: Bowel Resection, Joint Replacement, Tonsillectomy Additional Past Surgical History / Comment(s): ILEOSTOMY, partial mastectomy Past Anesthesia/Blood Transfusion Reactions: No Reported Reaction Past Psychological History: Depression Smoking Status: Former smoker Past Alcohol Use History: None Reported Past Drug Use History: None Reported - Past Family History Mother Additional Family Medical History / Comment(s): in 50s heart Father Additional Family Medical History / Comment(s): alzheimer <JosephzeynepSurekha ronquilol - Last Filed: 12/18/22 20:23> General Exam Limitations: altered mental status General appearance: alert, in no apparent distress Head exam: Present: atraumatic, normocephalic, normal inspection Eye exam: Present: normal appearance, PERRL, EOMI. Absent: scleral icterus, conjunctival injection, periorbital swelling ENT exam: Present: normal exam, mucous membranes moist Neck exam: Present: normal inspection. Absent: tenderness, meningismus, lymphadenopathy Respiratory exam: Present: normal lung sounds bilaterally. Absent: respiratory distress, wheezes, rales, rhonchi, stridor Cardiovascular Exam: Present: regular rate, normal rhythm, normal heart sounds. Absent: systolic murmur, diastolic murmur, rubs, gallop, clicks GI/Abdominal exam: Present: soft, normal bowel sounds. Absent: distended, tenderness, guarding, rebound, rigid Extremities exam: Present: normal inspection, full ROM, normal capillary refill. Absent: tenderness, pedal edema, joint swelling, calf tenderness Back exam: Present: normal inspection Neurological exam: Present: alert, oriented X3, CN II-XII intact Psychiatric exam: Present: normal affect, normal mood Skin exam: Present: warm, dry, intact, normal color. Absent: rash <SunithaSurekha - Last Filed: 12/18/22 20:23> Course <SunithaSurekha - Last Filed: 12/18/22 20:23> Vital Signs 12/18/22 12/18/22 12/18/22 09:39 12:00 12:15 Temperature 100.4 F H Pulse Rate 101 H Respiratory 16 Rate Blood Pressure 127/65 73/39 80/42 O2 Sat by Pulse 98 Oximetry 12/18/22 12/18/22 12/18/22 12:25 13:00 13:45 Temperature 98.4 F Pulse Rate 67 Respiratory Rate Blood Pressure 86/42 102/54 98/44 O2 Sat by Pulse 100 Oximetry 12/18/22 12/18/22 12/18/22 14:15 14:30 14:40 Temperature Pulse Rate 62 61 61 Respiratory 16 17 17 Rate Blood Pressure 108/40 90/50 75/51 O2 Sat by Pulse 100 100 100 Oximetry 12/18/22 12/18/22 12/18/22 14:50 15:00 17:00 Temperature Pulse Rate 56 L 59 L 57 L Respiratory 17 17 16 Rate Blood Pressure 91/56 84/39 104/54 O2 Sat by Pulse 100 100 99 Oximetry - Reevaluation(s) Reevaluation #1: 12/18/22 11:45 Notified of elevated lactic acid at 2.2, and elevated troponin of 0.074. (Surekha Helton) Reevaluation #2: 12/18/22 12:11 RN notified provider of patient's blood pressures ranging from 60's/40's NS ordered. Dr. Casey aware. Family reports the patient signed DO NOT RESUSCITATE paperwork at [facility] earlier today. [facility] faxed DO NOT RESUSCITATE paperwork over to this facility. DO NOT RESUSCITATE paperwork scanned into the computer. 12/18/22 20:24 (Surekha Helton) Reevaluation #3: 12/18/22 14:[address] Avilez in the emergency department who agrees and accepts the patient for admission (Surekha Helton) Procedures - [place] Protocol (Time Out) Nurse: Mary Ann Beard <Surekha Helton - Last Filed: 12/18/22 20:23> - Sepsis Sepsis Focused Exam #1 Time Sepsis Criteria Met: 12:10 Sepsis Focused Exam Date: 12/18/22 Sepsis Focused Exam Time: 14:00 Sepsis Focused Exam Complete: Yes Vital Signs & RN Notes Reviewed: Yes Capillary Refill: < 2 Seconds: Fingers, Toes Peripheral Pulses: Normal: Radial (R), Radial (L) Skin Color: Normal for Patient Respiratory Exam: normal lung sounds Cardiovascular Exam: regular rate <Jaime Casey - Last Filed: 12/18/22 23:07> Medical Decision Making - Lab Data Result diagrams: 12/18/22 10:30 12/18/22 10:30 <Surekha Helton - Last Filed: 12/18/22 20:23> - Lab Data Result diagrams: 12/18/22 10:30 12/18/22 10:30 <Jaime Casey - Last Filed: 12/18/22 23:07> - Medical Decision Making Was pt. sent in by a medical professional or institution (TRUDI Casillas, HEAVY MOBILE EQUIPMENT OPERATOR, urgent care, hospital, or retirement...) When possible be specific @ -[No] Did you speak to anyone other than the patient for history (EMS, parent, family, police, friend...)? What history was obtained from this source @ -[No] Did you review nursing and triage notes (agree or disagree)? Why? @ -[I reviewed and agree with nursing and triage notes] Were old charts reviewed (outside hosp., previous admission, EMS record, old EKG, old radiological studies, urgent care reports/EKG's, retirement records)? Report findings @ -[No old charts were reviewed] Differential Diagnosis (chest pain, altered mental status, abdominal pain women, abdominal pain men, vaginal bleeding, weakness, fever, dyspnea, syncope, h eadache, dizziness, GI bleed, back pain, seizure, CVA, palpatations, mental health, musculoskeletal)? @ -[not applicable] EKG interpreted by me (3pts min.). @ -[As above] X-rays interpreted by me (1pt min.). @ -[None done] CT interpreted by me (1pt min.). @ -CT brain negative for any evidence of intracranial process. No acute changes from previous U/S interpreted by me (1pt. min.). @ -[None done] What testing was considered but not performed or refused? (CT, X-rays, U/S, labs)? Why? @ -[None] What meds were considered but not given or refused? Why? @ -[None] Did you discuss the management of the patient with other professionals (professionals i.e. TRUDI Casillas, HEAVY MOBILE EQUIPMENT OPERATOR, lab, RT, psych nurse, high school social science teacher, recycle worker, teacher, executive officer special warfare team, case maker)? Give summary @ -[No] Was smoking cessation discussed for >3mins.? @ -[No] Was critical care preformed (if so, how long)? @ -[No] Were there social determinants of health that impacted care today? How? (Homelessness, low income, unemployed, alcoholism, drug addiction, transportation, low edu. Level, literacy, decrease access to med. care, fdc, rehab)? @ -[No] Was there de-escalation of care discussed even if they declined (Discuss DNR or withdrawal of care, Hospice)? DNR status @ -[No] What co-morbidities impacted this encounter? (DM, HTN, Smoking, COPD, CAD, Cancer, CVA, ARF, Chemo, Hep., AIDS, mental health diagnosis, sleep apnea, morbid obesity)? @ -[None] Was patient admitted / discharged? Hospital course, mention meds given and route, prescriptions, significant lab abnormalities, going to OR and other pertinent info. @ -Admission. This is an 79-year-old female who presents emergency Department chief complaint altered mental status. Patient had a thorough history and physical exam performed. Patient heart rate regular rate and rhythm, lungs clear to auscultation bilaterally abdomen is soft and nontender. Patient is alert and oriented 1-2. Patient was initially febrile upon arrival to the ED. She was given Tylenol and fluids with fever. Patient became hypotensive early in her course of care in the ED. Patient was given fluids and IV pressure that ultimately increase her blood pressure to 100 over 50s. Patient remained alert at her baseline. He should had lab work and imaging performed in the ED: WBC is 18.2, hemoglobin 13.5, PTT 10.7, INR 1.0 a PTT 18.2 , BMP unremarkable, BUN 24, creatinine 1.5 to close 209, initial troponin is 0.074, second troponin 0.111 Urinalysis reveals small amount of blood, large amount of leukocyte esterase, greater than 182 white blood cells Chest x-ray reveals chronic changes and mild cardiomegaly without any acute new pulmonary process CT head shows degenerative and nonspecific white matter change with no evidence of acute hemorrhage or mass effect It is my decision to admit this patient into [facility] for further management and treatment. Case discussed with Dr. Vines, [facility] stereo operator oral surgeon who agrees and accepts the patient for admission. The patient was started on vancomycin and cefepime. She was given 2000 mL of IV fluids. She was provided 45 minutes of critical care time. Case discussed with Dr. Casey [facility] who agrees with plan of care Undiagnosed new problem with uncertain prognosis? @ -[No] Drug Therapy requiring intensive monitoring for toxicity (Heparin, Nitro, Insulin, Cardizem)? @ -[No] Were any procedures done? @ -[No] Diagnosis/symptom? @ -Altered mental status - hypotension -sepsis - DNR Acute, or Chronic, or Acute on Chronic? @ -acute Uncomplicated (without systemic symptoms) or Complicated (systemic symptoms)? @ -complicated Side effects of treatment? @ -[No] Exacerbation, Progression, or Severe Exacerbation? @ -[No] Poses a threat to life or bodily function? How? (Chest pain, [place], [place], pneumonia, PE, COPD, DKA, ARF, appy, cholecystitis, CVA, Diverticulitis, Homicidal, Suicidal, threat to staff... and all critical care pts) @ -high likelihood (Surekha Helton) I was notified the patient at 1210. At this time patient did meet sepsis criteria. She was hypotensive, with a leukocytosis, and concern for infection. Patient was given 30 mL per KG fluid bolus. Was started on route spectrum antibiotic thank mice and cefepime. Lactic acid is 2.2 and repeat is pending. Patient did respond to fluids and pressures did improve as well with systolics in the low 100s. Patient was found to be DO NOT RESUSCITATE after mid-level provider Surekha discussed with family. Paperwork was faxed to our facility and placed on the patient's chart. She did discuss with family regarding the potential need for pressors, and they did agree to central line placement as well as pressor administration if needed. Patient does not appear to need pressors as maps are improving with fluid administration. Patient will be admitted to the hospital in serious condition. (Jaime Casey) - Lab Data Lab Results 12/18/22 12/18/22 12/18/22 Range/Units 10:09 10:30 10:30 WBC 18.2 H (3.8-10.6) k/uL RBC 4.08 (3.80-5.40) m/uL Hgb 13.5 (11.4-16.0) gm/dL Hct 42.0 (34.0-46.0) % MCV 102.8 H (80.0-100.0) fL MCH 33.1 (25.0-35.0) pg MCHC 32.2 (31.0-37.0) g/dL RDW 14.4 (11.5-15.5) % Plt Count 193 (150-450) k/uL MPV 8.6 Neutrophils % 91 % Lymphocytes % 3 % Monocytes % 5 % Eosinophils % 1 % Basophils % 0 % Neutrophils # 16.6 H (1.3-7.7) k/uL Lymphocytes # 0.6 L (1.0-4.8) k/uL Monocytes # 0.8 (0-1.0) k/uL Eosinophils # 0.1 (0-0.7) k/uL Basophils # 0.1 (0-0.2) k/uL Macrocytosis Slight PT 10.7 (9.0-12.0) sec INR 1.0 (<1.2) APTT 18.2 L (22.0-30.0) sec Sodium (137-145) mmol/L Potassium (3.5-5.1) mmol/L Chloride (98-107) mmol/L Carbon Dioxide (22-30) mmol/L Anion Gap mmol/L BUN (7-17) mg/dL Creatinine (0.52-1.04) mg/dL Est GFR (CKD-EPI)AfAm (>60 ml/min/1.73 sqM) Est GFR (CKD-EPI)NonAf (>60 ml/min/1.73 sqM) Glucose (74-99) mg/dL POC Glucose (mg/dL) 198 H (70-110) mg/dL POC Glu Receivable Manager ID Mary Ann Beard Lactic Ac Sepsis Rflx Plasma Lactic Acid Oskar (0.7-2.0) mmol/L Calcium (8.4-10.2) mg/dL Total Bilirubin (0.2-1.3) mg/dL AST (14-36) U/L ALT (4-34) U/L Alkaline Phosphatase (38-126) U/L Ammonia (<30) umol/L Troponin I (0.000-0.034) ng/mL Total Protein (6.3-8.2) g/dL Albumin (3.5-5.0) g/dL Urine Color Urine Appearance (Clear) Urine pH (5.0-8.0) Ur Specific Aragon (1.001-1.035) Urine Protein (Negative) Urine Glucose (UA) (Negative) Urine Ketones (Negative) Urine Blood (Negative) Urine Nitrite (Negative) Urine Bilirubin (Negative) Urine Urobilinogen (<2.0) mg/dL Ur Leukocyte Esterase (Negative) Urine RBC (0-5) /hpf Urine WBC (0-5) /hpf Urine WBC Clumps (None) /hpf Urine Bacteria (None) /hpf Urine Yeast (Budding) (None) /hpf 12/18/22 12/18/22 12/18/22 Range/Units 10:30 10:30 10:30 WBC (3.8-10.6) k/uL RBC (3.80-5.40) m/uL Hgb (11.4-16.0) gm/dL Hct (34.0-46.0) % MCV (80.0-100.0) fL MCH (25.0-35.0) pg MCHC (31.0-37.0) g/dL RDW (11.5-15.5) % Plt Count (150-450) k/uL MPV Neutrophils % % Lymphocytes % % Monocytes % % Eosinophils % % Basophils % % Neutrophils # (1.3-7.7) k/uL Lymphocytes # (1.0-4.8) k/uL Monocytes # (0-1.0) k/uL Eosinophils # (0-0.7) k/uL Basophils # (0-0.2) k/uL Macrocytosis PT (9.0-12.0) sec INR (<1.2) APTT (22.0-30.0) sec Sodium 141 (137-145) mmol/L Potassium 4.0 (3.5-5.1) mmol/L Chloride 107 (98-107) mmol/L Carbon Dioxide 22 (22-30) mmol/L Anion Gap 12 mmol/L BUN 24 H (7-17) mg/dL Creatinine 1.52 H (0.52-1.04) mg/dL Est GFR (CKD-EPI)AfAm 35 (>60 ml/min/1.73 sqM) Est GFR (CKD-EPI)NonAf 30 (>60 ml/min/1.73 sqM) Glucose 209 H (74-99) mg/dL POC Glucose (mg/dL) (70-110) mg/dL POC Glu Receivable Manager ID Lactic Ac Sepsis Rflx Plasma Lactic Acid Oskar 2.2 H* (0.7-2.0) mmol/L Calcium 9.2 (8.4-10.2) mg/dL Total Bilirubin 0.6 (0.2-1.3) mg/dL AST 24 (14-36) U/L ALT 14 (4-34) U/L Alkaline Phosphatase 109 (38-126) U/L Ammonia <9 (<30) umol/L Troponin I 0.074 H* (0.000-0.034) ng/mL Total Protein 7.2 (6.3-8.2) g/dL Albumin 4.0 (3.5-5.0) g/dL Urine Color Urine Appearance (Clear) Urine pH (5.0-8.0) Ur Specific Aragon (1.001-1.035) Urine Protein (Negative) Urine Glucose (UA) (Negative) Urine Ketones (Negative) Urine Blood (Negative) Urine Nitrite (Negative) Urine Bilirubin (Negative) Urine Urobilinogen (<2.0) mg/dL Ur Leukocyte Esterase (Negative) Urine RBC (0-5) /hpf Urine WBC (0-5) /hpf Urine WBC Clumps (None) /hpf Urine Bacteria (None) /hpf Urine Yeast (Budding) (None) /hpf 12/18/22 12/18/22 Range/Units 11:16 13:30 WBC (3.8-10.6) k/uL RBC (3.80-5.40) m/uL Hgb (11.4-16.0) gm/dL Hct (34.0-46.0) % MCV (80.0-100.0) fL MCH (25.0-35.0) pg MCHC (31.0-37.0) g/dL RDW (11.5-15.5) % Plt Count (150-450) k/uL MPV Neutrophils % % Lymphocytes % % Monocytes % % Eosinophils % % Basophils % % Neutrophils # (1.3-7.7) k/uL Lymphocytes # (1.0-4.8) k/uL Monocytes # (0-1.0) k/uL Eosinophils # (0-0.7) k/uL Basophils # (0-0.2) k/uL Macrocytosis PT (9.0-12.0) sec INR (<1.2) APTT (22.0-30.0) sec Sodium (137-145) mmol/L Potassium (3.5-5.1) mmol/L Chloride (98-107) mmol/L Carbon Dioxide (22-30) mmol/L Anion Gap mmol/L BUN (7-17) mg/dL Creatinine (0.52-1.04) mg/dL Est GFR (CKD-EPI)AfAm (>60 ml/min/1.73 sqM) Est GFR (CKD-EPI)NonAf (>60 ml/min/1.73 sqM) Glucose (74-99) mg/dL POC Glucose (mg/dL) (70-110) mg/dL POC Glu Receivable Manager ID Lactic Ac Sepsis Rflx Y Plasma Lactic Acid Oskar (0.7-2.0) mmol/L Calcium (8.4-10.2) mg/dL Total Bilirubin (0.2-1.3) mg/dL AST (14-36) U/L ALT (4-34) U/L Alkaline Phosphatase (38-126) U/L Ammonia (<30) umol/L Troponin I (0.000-0.034) ng/mL Total Protein (6.3-8.2) g/dL Albumin (3.5-5.0) g/dL Urine Color Yellow Urine Appearance Turbid H (Clear) Urine pH 6.5 (5.0-8.0) Ur Specific Aragon 1.012 (1.001-1.035) Urine Protein 1+ H (Negative) Urine Glucose (UA) Negative (Negative) Urine Ketones Negative (Negative) Urine Blood Small H (Negative) Urine Nitrite Negative (Negative) Urine Bilirubin Negative (Negative) Urine Urobilinogen <2.0 (<2.0) mg/dL Ur Leukocyte Esterase Large H (Negative) Urine RBC 3 (0-5) /hpf Urine WBC >182 H (0-5) /hpf Urine WBC Clumps Few H (None) /hpf Urine Bacteria Many H (None) /hpf Urine Yeast (Budding) Moderate H (None) /hpf Critical Care Time Critical Care Time: Yes Total Critical Care Time: 45 <Surekha Helton - Last Filed: 12/18/22 20:23> Disposition Is patient prescribed a controlled substance at d/c from ED?: No Time of Disposition: 14:34 <Surekha Helton - Last Filed: 12/18/22 20:23> <Jaime Casey - Last Filed: 12/18/22 23:07> Clinical Impression: Altered mental status, Sepsis, Hypotension Disposition: ADMITTED IP TO THIS HOSP Condition: Fair
--- NOTE | 2022-12-18 11:50 | XR ---
EXAMINATION TYPE: XR chest 2V DATE OF EXAM: 12/18/2022 COMPARISON: Chest x-ray October 01, 2022 HISTORY: Altered mental status and weakness. TECHNIQUE: Frontal and lateral views of the chest are obtained. FINDINGS: Osseous structures remain demineralized. Underlying Scoliosis is present. There is chronic parenchymal change bilaterally without suspicious new focal air space opacity, pleural effusion, or pneumothorax seen. The cardiac silhouette size is stable and enlarged with atherosclerotic thoracic aorta. Surgical clips are redemonstrated overlying the left breast. IMPRESSION: Chronic changes and mild cardiomegaly without acute new pulmonary process.
--- NOTE | 2022-12-18 11:54 | CT ---
EXAMINATION TYPE: CT brain wo con DATE OF EXAM: 12/18/2022 COMPARISON: 09/27/2022 HISTORY: Altered mental status. CT DLP: 1165.4 mGycm Automated exposure control for dose reduction was used. FINDINGS: There is moderate to severe generalized degenerative change with diffuse areas of low attenuation whi te matter most typical of remote white matter ischemia. There is no midline shift or mass effect. Sma ll remote lacunar infarct involving the left basal ganglia. Intracranial atherosclerotic changes are noted. Slight asymmetry in the degree of fluid attenuation w ithin the anterior temporal fossa is bilaterally suggests small bilateral arachnoid cysts, largest me asuring 1.2 cm in AP dimension. Craniocervical junction is maintained. Calvarium intact. Sella turcica has normal appearance. Orbits are symmetric. IMPRESSION: DEGENERATIVE AND NONSPECIFIC WHITE MATTER CHANGE WITH NO EVIDENCE OF ACUTE HEMORRHAGE OR MASS EFFECT. 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 CORRELATE CLINICALLY.
[2022-12-18] MEDS ORDERED: SODIUM CHLORIDE 0.9% 1,000 ML IV ONE (12:04)
[2022-12-18] MEDS ORDERED: VANCOMYCIN IV PER PHARMACY 1 EACH MISC MISCELLANE PRN (12:13)
[2022-12-18] MEDS ORDERED: CEFEPIME 1 GM in SODIUM CHLORIDE 0.9% 50 ML IVPB STA (12:17)
[2022-12-18] MEDS ORDERED: VANCOMYCIN 750 MG in SODIUM CHLORIDE 0.9% 250 ML IVPB STA (12:18)
[2022-12-18] MEDS ORDERED: CEFEPIME 2 GM in SODIUM CHLORIDE 0.9% 100 ML IVPB SCH (12:20)
[2022-12-18] MEDS ORDERED: SODIUM CHLORIDE 0.9% 1,000 ML IV STA (13:40)
[2022-12-18 14:08] LABS: Appearance,Urine Turbid (Clear); Bacteria,Urine Many /hpf; Bilirubin,Urine Negative (Negative); Blood,Urine Small (Negative); Budding Yeast,Urine Moderate /hpf; Color,Urine Yellow; Glucose,Urine (UA) Negative (Negative); Ketones,Urine Negative (Negative); Leukocyte Esterase,Urine Large (Negative); Nitrite,Urine Negative (Negative); PH, Urine 6.5 (5.0-8.0); Protein,Urine 1+ (Negative); RBC,Urine 3 /hpf (0-5); Specific Gravity,Urine 1.012 (1.001-1.035); Urobilinogen,Urine <2.0 mg/dL (<2.0); WBC,Urine >182 /hpf (0-5)
[2022-12-18] MEDS ORDERED: ACETAMINOPHEN TAB 325 MG TAB PO PRN (14:38)
[2022-12-18] MEDS ORDERED: NALOXONE 0.4 MG/ML 1 ML VIAL IV PRN (14:38)
[2022-12-18] MEDS ORDERED: SODIUM CHLORIDE 0.9% 1,000 ML IV SCH (14:45)
[2022-12-18] MEDS ORDERED: SENNOSIDES-DOCUSATE SODIUM 1 EACH TAB PO PRN (19:09)
[2022-12-18] MEDS ORDERED: HYDROcodone/APAP 5-325MG 1 EACH TAB PO PRN (19:09)
[2022-12-18 19:10] LABS: Glucose,Whole Blood 160 mg/dL (70-110)
[2022-12-18 19:59] LABS: Glucose,Whole Blood 152 mg/dL (70-110)
[2022-12-18] MEDS: carBAMazepine 200 MG TAB PO SCH (20:45)
[2022-12-18] MEDS: HEPARIN SODIUM,PORCINE/PF 5,000 UNIT/0.5 ML SYRINGE SQ SCH (20:45)
[2022-12-18] MEDS: FAMOTIDINE 20 MG TAB PO SCH (20:45)
[2022-12-18] MEDS: CARBIDOPA-LEVODOPA 25-100 MG 1 EACH TAB PO SCH (20:45)
[2022-12-18] MEDS: VIT A,C & E-LUTEIN-MINERALS 1 EACH TAB PO SCH (20:45)
[2022-12-18] MEDS: CEFEPIME 1 GM in SODIUM CHLORIDE 0.9% 50 ML IVPB SCH (20:46)
[2022-12-18] MEDS: ARTIFICIAL TEARS-HYPROMELLOSE DROPS 15 ML BTL BOTH EYES SCH (20:47)
--- NOTE | 2022-12-18 22:04 | P.HPIM ---
History of Present Illness H&P Date: 12/18/22 Chief Complaint: Altered mental status Patient is a 87-year-old female with a known history of hypertension, diabetes type 2 [id number], dementia, Parkinson's disease and history of fall in September 2022 with a left hip fracture status post surgery was sent to ER from [facility] due to complaints of altered mental status. As per EMS report patient was having breakfast this morning when she had a brief episode of not responding and altered mental status and was drooling. Patient usually awake alert and oriented x2 at baseline. As per EMS report patient was febrile in route to the hospital. No focal neurological deficit was noted. No weakness or seizures. No bowel or bladder incontinence. Currently patient is drowsy and altered and could not provide any history. On admission patient was tachycardic with heart rate 101 Tmax 100.4 and pulse ox 98% on room air and blood pressure 73/39. Patient was given total of 3 L IV fluid bolus with improvement in blood pressure. Chest x-ray showed chronic changes and mild cardiomegaly without acute pulmonary process. CT head showed BeeGentle A2 and nonspecific white matter changes with no evidence of acute hemorrhage or mass effect. EKG showed sinus rhythm with occasional supraventricular premature complexes. Laboratory data showed WBC 18.2 hemoglobin 13.7 and platelets 193 MCV 102.8 Sodium 141 potassium 4.0 chloride 107 bicarb is 22 BUN 24 and creatinine 1.52 and blood sugar is 209 and lactic acid 2.2 and troponin 0.074, 0.111 Urinalysis showed turbid with 1+ protein small blood large leukocyte esterase with related WBCs. Review of Systems Complete review of systems could not be obtained from the patient ROS unobtainable: due to mental status Past Medical History Past Medical History: Cancer, Diabetes Mellitus, GERD/Reflux, Hypertension, Memory Impairment Additional Past Medical History / Comment(s): BREAST CANCER WITH RADIATION [place], parkinsons,seen at wound center open infection to left grt toe. left 2nd hammer toe ( RN at [facility] states pt does not feel any discomfort to left foot). OSTEOPOROSIS. "SWELLING IN FEET". History of Any Multi-Drug Resistant Organisms: None Reported Past Surgical History: Bowel Resection, Joint Replacement, Tonsillectomy Additional Past Surgical History / Comment(s): ILEOSTOMY, partial mastectomy Past Anesthesia/Blood Transfusion Reactions: No Reported Reaction Past Psychological History: Depression Smoking Status: Former smoker Past Alcohol Use History: None Reported Past Drug Use History: None Reported - Past Family History Mother Additional Family Medical History / Comment(s): in 50s heart Father Additional Family Medical History / Comment(s): alzheimer Medications and Allergies Home Medications Medication Instructions Recorded Confirmed Type Carbidopa-Levodopa 25-100 mg 1 tab PO TID@0800,1300,199905/21/22 12/18/22 History [Sinemet 25-100 mg] Famotidine 20 mg PO BID@0800,199905/21/22 12/18/22 History Furosemide [Lasix] 20 mg PO DAILY@0800 05/21/22 12/18/22 History Irbesartan [Avapro] 150 mg PO DAILY@0800 05/21/22 12/18/22 History Metoprolol Succinate (ER) [Toprol 25 mg PO DAILY@0800 05/21/22 12/18/22 History XL] Vit C/E/Zn/Coppr/Lutein/Zeaxan 1 tab PO BID@0800,199905/21/22 12/18/22 History [Preservision Areds 2 Chew Tab] carBAMazepine [TEGretol] 200 mg PO BID@0800,199905/21/22 12/18/22 History Aspirin 81 mg PO DAILY@1200 07/16/22 12/18/22 History Acetaminophen Tab [Tylenol] 650 mg PO Q6H PRN 09/27/22 12/18/22 History Denosumab [Prolia] 60 mg SQ DIRECTED 09/27/22 12/18/22 History Prevagen Chew Mixed Barber 30 1 tab PO DAILY@0800 09/27/22 12/18/22 History Refresh Optive Gel Drops 1 drop BOTH EYES TID@0800,1300,199909/27/22 12/18/22 History Ensure Enlive 120 - 237 ml PO TID@0800,1200,1700 12/18/22 12/18/22 History HYDROcodone/APAP 5-325MG [[place] 5] 1 tab PO Q4H PRN 12/18/22 12/18/22 History Magic Cup 118 ml PO DAILY@1700 12/18/22 12/18/22 History Magnesium Hydroxide [Milk of 7,200 mg PO DAILY PRN 12/18/22 12/18/22 History Magnesia Concentrate] Na Phos,M-B/Na Phos,Di-Ba [Fleet 133 ml RECTAL DAILY PRN 12/18/22 12/18/22 History Adult] Sennosides-Docusate Sodium 2 tab PO DAILY@0800 12/18/22 12/18/22 History [Senokot-S] amLODIPine [Norvasc] 2.5 mg PO HS@2100 12/18/22 12/18/22 History bisacodyL [Dulcolax] 10 mg RECTAL DAILY PRN 12/18/22 12/18/22 History Allergies Allergy/AdvReac Type Severity Reaction Status Date / Time Sulfa (Sulfonamide Allergy Swelling Verified 12/18/22 11:15 Antibiotics) Tetracyclines Allergy Unknown Verified 12/18/22 11:15 Physical Exam Vitals: Vital Signs Temp Pulse Pulse Resp BP BP Pulse Ox 12/18/22 18:37 97.1 F L 66 14 129/64 100 12/18/22 17:00 57 L 16 104/54 99 12/18/22 15:00 59 L 17 84/39 100 12/18/22 14:50 56 L 17 91/56 100 12/18/22 14:40 61 17 75/51 100 12/18/22 14:30 61 17 90/50 100 12/18/22 14:15 62 16 108/40 100 12/18/22 13:45 98.4 F 67 98/44 100 12/18/22 13:00 102/54 12/18/22 12:25 86/42 12/18/22 12:15 80/42 12/18/22 12:00 73/39 12/18/22 09:39 100.4 F H 101 H 16 127/65 98 Intake and Output 12/18/22 12/18/22 12/18/22 06:59 14:59 22:59 Output Total 750 Balance -750 Output: Urine 750 Other: Weight 40.823 kg PHYSICAL EXAMINATION: Patient is lying in the bed comfortably, no acute distress, patient is lethargic and unable to wake up. HEENT: Normocephalic. Neck is supple. Pupils reactive. Nostrils clear. Oral cavity is moist. Neck reveals no JVD, carotid bruits, or thyromegaly. CHEST EXAMINATION: Trachea is central. Symmetrical expansion. Lung amador clear to auscultation and percussion. CARDIAC: Normal S1, S2 with no gallops. No murmurs ABDOMEN: Soft. Bowel sounds present. Nontender. No organomegaly. No abdominal bruits. Extremities: reveal no edema. No clubbing or cyanosis Neurologically lethargic and obtunded.. No gross focal deficits noted Skin: No rash or skin lesions. Psychiatric: Could not be assessed., Musculoskeletal: No joint swelling or deformity. Results CBC & Chem 7: 12/18/22 10:30 12/18/22 10:30 Labs: Abnormal Lab Results - Last 24 Hours (Table) 12/18/22 12/18/22 12/18/22 Range/Units 10:09 10:30 10:30 WBC 18.2 H (3.8-10.6) k/uL MCV 102.8 H (80.0-100.0) fL Neutrophils # 16.6 H (1.3-7.7) k/uL Lymphocytes # 0.6 L (1.0-4.8) k/uL APTT 18.2 L (22.0-30.0) sec BUN (7-17) mg/dL Creatinine (0.52-1.04) mg/dL Glucose (74-99) mg/dL POC Glucose (mg/dL) 198 H (70-110) mg/dL Plasma Lactic Acid Oskar (0.7-2.0) mmol/L Troponin I (0.000-0.034) ng/mL Urine Appearance (Clear) Urine Protein (Negative) Urine Blood (Negative) Ur Leukocyte Esterase (Negative) Urine WBC (0-5) /hpf Urine WBC Clumps (None) /hpf Urine Bacteria (None) /hpf Urine Yeast (Budding) (None) /hpf 12/18/22 12/18/22 12/18/22 Range/Units 10:30 10:30 10:30 WBC (3.8-10.6) k/uL MCV (80.0-100.0) fL Neutrophils # (1.3-7.7) k/uL Lymphocytes # (1.0-4.8) k/uL APTT (22.0-30.0) sec BUN 24 H (7-17) mg/dL Creatinine 1.52 H (0.52-1.04) mg/dL Glucose 209 H (74-99) mg/dL POC Glucose (mg/dL) (70-110) mg/dL Plasma Lactic Acid Oskar 2.2 H* (0.7-2.0) mmol/L Troponin I 0.074 H* (0.000-0.034) ng/mL Urine Appearance (Clear) Urine Protein (Negative) Urine Blood (Negative) Ur Leukocyte Esterase (Negative) Urine WBC (0-5) /hpf Urine WBC Clumps (None) /hpf Urine Bacteria (None) /hpf Urine Yeast (Budding) (None) /hpf 12/18/22 12/18/22 12/18/22 Range/Units 13:30 17:15 19:09 WBC (3.8-10.6) k/uL MCV (80.0-100.0) fL Neutrophils # (1.3-7.7) k/uL Lymphocytes # (1.0-4.8) k/uL APTT (22.0-30.0) sec BUN (7-17) mg/dL Creatinine (0.52-1.04) mg/dL Glucose (74-99) mg/dL POC Glucose (mg/dL) 160 H (70-110) mg/dL Plasma Lactic Acid Oskar (0.7-2.0) mmol/L Troponin I 0.111 H* (0.000-0.034) ng/mL Urine Appearance Turbid H (Clear) Urine Protein 1+ H (Negative) Urine Blood Small H (Negative) Ur Leukocyte Esterase Large H (Negative) Urine WBC >182 H (0-5) /hpf Urine WBC Clumps Few H (None) /hpf Urine Bacteria Many H (None) /hpf Urine Yeast (Budding) Moderate H (None) /hpf 12/18/22 Range/Units 19:54 WBC (3.8-10.6) k/uL MCV (80.0-100.0) fL Neutrophils # (1.3-7.7) k/uL Lymphocytes # (1.0-4.8) k/uL APTT (22.0-30.0) sec BUN (7-17) mg/dL Creatinine (0.52-1.04) mg/dL Glucose (74-99) mg/dL POC Glucose (mg/dL) 152 H (70-110) mg/dL Plasma Lactic Acid Oskar (0.7-2.0) mmol/L Troponin I (0.000-0.034) ng/mL Urine Appearance (Clear) Urine Protein (Negative) Urine Blood (Negative) Ur Leukocyte Esterase (Negative) Urine WBC (0-5) /hpf Urine WBC Clumps (None) /hpf Urine Bacteria (None) /hpf Urine Yeast (Budding) (None) /hpf Microbiology - Last 24 Hours (Table) 12/18/22 10:30 Urine Culture - Preliminary Urine,Voided Thrombosis Risk Factor Assmnt - DVT/VTE Prophylaxis DVT/VTE Prophylaxis: Pharmacologic Prophylaxis ordered Assessment and Plan Assessment: Altered mental status possible metabolic encephalopathy secondary to infection. Acute urinary tract infection Sepsis secondary to above Acute kidney injury likely prerenal Lactic acidosis Elevated troponin level likely due to sepsis Hypertension Parkinson's disease Memory impairment History of fall and hip fracture in September 2022 Depression Prior history of smoking DVT prophylaxis heparin subcu Plan: Patient was given 2 L fluid bolus in the ER. Improvement in blood pressure. Continue with antibiotics in the form of cefepime. Follow-up final urine cult ure and blood culture report. Ordered influenza A B and COVID-19 PCR. Blood pressure medications on hold. Continue to follow closely. Prognosis guarded at this time. Cardiology and ID will be consulted. Time with Patient: Greater than 30
[2022-12-18] MEDS: SODIUM CHLORIDE 0.9% 1,000 ML IV SCH (23:15)
[2022-12-19 05:51] LABS: Glucose,Whole Blood 121 mg/dL (70-110)
[2022-12-19 07:47] LABS: Basophils % (A) 0 %; Eosinophils % (A) 0 %; HGB 10.8 gm/dL (11.4-16.0); Lymphocytes # (A) 1.4 k/uL (1.0-4.8); Lymphocytes % (A) 12 %; MCH 34.6 pg (25.0-35.0); MCHC 33.7 g/dL (31.0-37.0); MCV 102.5 fL (80.0-100.0); Macrocytosis Slight; Mean Platelet Volume 7.8; Monocytes # (A) 0.5 k/uL (0-1.0); Monocytes % (A) 4 %; Neutrophils # (A) 9.8 k/uL (1.3-7.7); Neutrophils % (A) 83 %; Platelet Count 189 k/uL (150-450); RBC 3.12 m/uL (3.80-5.40); RDW 14.5 % (11.5-15.5); WBC 11.9 k/uL (3.8-10.6)
[2022-12-19 08:18] LABS: Calcium 7.9 mg/dL (8.4-10.2); Potassium 3.7 mmol/L (3.5-5.1)
[2022-12-19] MEDS: ARTIFICIAL TEARS-HYPROMELLOSE DROPS 15 ML BTL BOTH EYES SCH ×3 (09:26→19:55)
[2022-12-19] MEDS: FAMOTIDINE 20 MG TAB PO SCH (09:26)
[2022-12-19] MEDS: CEFEPIME 1 GM in SODIUM CHLORIDE 0.9% 50 ML IVPB SCH ×2 (09:26→19:55)
[2022-12-19] MEDS: HEPARIN SODIUM,PORCINE/PF 5,000 UNIT/0.5 ML SYRINGE SQ SCH ×3 (09:26→23:09)
[2022-12-19] MEDS: carBAMazepine 200 MG TAB PO SCH ×2 (09:26→19:55)
[2022-12-19] MEDS: CARBIDOPA-LEVODOPA 25-100 MG 1 EACH TAB PO SCH ×3 (09:26→19:55)
[2022-12-19] MEDS: VIT A,C & E-LUTEIN-MINERALS 1 EACH TAB PO SCH ×2 (09:27→19:55)
[2022-12-19] MEDS ORDERED: VANCOMYCIN 750 MG in SODIUM CHLORIDE 0.9% 250 ML IVPB ONE (10:00)
--- NOTE | 2022-12-19 10:43 | CA ---
Transthoracic Echo Report Name: Jennifer Vargas Age: 87 Gender: F : 1935 Exam Date: 12/19/2022 07:26 Exam Location: [facility] [facility] Ht (in): 64 Wt (lb): 90 Ordering Physician: Denver Vines MD Attending/Referring Phys: Digital Sales Planner Chance Sandoval RDCS Procedure CPT: Indications: elevated trop Cardiac Hx: Technical Quality: Fair Contrast 1: Total Dose (mL): Contrast 2: Total Dose (mL): MEASUREMENTS (Male / Female) Normal Values 2D ECHO LV Diastolic Diameter PLAX 3.4 cm 4.2 - 5.9 / 3.9 - 5.3 cm LV Systolic Diameter PLAX 2.3 cm IVS Diastolic Thickness 0.8 cm 0.6 - 1.0 / 0.6 - 0.9 cm LVPW Diastolic Thickness 1.1 cm 0.6 - 1.0 / 0.6 - 0.9 cm LV Relative Wall Thickness 0.6 LA Volume 64.8 cm??? 18 - 58 / 22 - 52 cm??? M-MODE Aortic Root Diameter MM 3.5 cm AV Cusp Separation MM 1.6 cm DOPPLER AV Peak Velocity 130.0 cm/s AV Peak Gradient 6.8 mmHg AI Peak Velocity 445.2 cm/s AI Peak Gradient 79.3 mmHg AI Pressure Half Time 704.6 ms LVOT Peak Velocity 139.6 cm/s LVOT Peak Gradient 7.8 mmHg MV Area PHT 4.2 cm??? Mitral E Point Velocity 92.2 cm/s Mitral A Point Velocity 123.4 cm/s Mitral E to A Ratio 0.7 MV Deceleration Time 182.2 ms TR Peak Velocity 274.9 cm/s TR Peak Gradient 30.2 mmHg Right Atrial Pressure 3.0 mmHg Pulmonary Artery Systolic Pressu 33.2 mmHg Right Ventricular Systolic Press 33.2 mmHg FINDINGS Left Ventricle Mildly increased posterior wall thickness. Small left ventricular cavity. Grade 1 diastolic dysfunction. Left ventricular ejection fraction is estimated at 60 %. Right Ventricle Normal right ventricular size. Normal right ventricular global systolic function. Right ventricular systolic pressure within normal limits. Right Atrium Normal right atrial size. Left Atrium Moderately increased left atrial volume. Mitral Valve Mitral annular calcification of posterior leaflet. Aortic Valve Trileaflet aortic valve. Thickened aortic valve without stenosis. Mild aortic regurgitation. Tricuspid Valve Structurally normal tricuspid valve. Mild tricuspid regurgitation. Pulmonic Valve No pulmonic regurgitation. Pericardium Small pericardial effusion. Pleural effusion? Aorta Mild aortic dilatation at the level of the sinuses of valsalva. Proximal ascending aorta (tube) normal. CONCLUSIONS Normal LV systolic function. EF is about 60%. Impaired relaxation of the LV Normal RV systolic function. Normal pulmonary artery systolic pressure Mild aortic regurgitation Previewed by: Dr. Riky Katz MD (Electronically Signed) Final Date: 19 December 2022 10:42
[2022-12-19 11:42] LABS: Glucose,Whole Blood 156 mg/dL (70-110)
[2022-12-19 11:46] VITALS: BMI 15.4
[2022-12-19] MEDS: ASPIRIN 81 MG PO SCH (12:01)
--- NOTE | 2022-12-19 12:10 | P.CRDCN ---
History of Present Illness Consult date: 12/19/22 Chief complaint: elevated troponin History of present illness: HISTORY OF PRESENT ILLNESS: Patient is a pleasantly confused 87-year-old female with significant past medical history of hypertension, diabetes, dementia, Parkinson's, fall with left hip fracture status post surgery in September 2022 who presented to the ED with complaints of AMS. She apparently resides at [facility] currently and was noted to have altered mental status. As per report patient was febrile with EMS. Her baseline is A/O 2. She is currently oriented to self only and unable to provide history. On admission to the ER T-max was 100.4 and she was hypotensive with blood pressure 70s/30s, she underwent fluid resuscitation and blood pressures have improved. Troponins were mildly elevated at 0.096, 0.111, 0.074. CBC 11.9, creatinine 1.06, lactic acid 2.2. She appears to be in no acute distress and denies having any chest pain, shortness of breath, dizziness. She follows simple commands. EKG showed sinus rhythm with occasional supraventricular premature complexes. Echocardiogram today shows ejection fraction of 60% and mild aortic regurgitation. REVIEW OF SYSTEMS: No fever or chills. No cough or expectoration. No diaphoresis. Patient denies headache, dizziness, blurred vision, double vision. Patient denies any stomach discomfort. No nausea, vomiting. No hematochezia. No hematemesis. Denies any black stools or blood in his stools. Denies dysuria or hematuria. No muscle weakness or numbness. No chest pain or pressure. PHYSICAL EXAMINATION: This is a 87-year-old female in no apparent distress at the time of my examination. HEENT: Head is atraumatic, normocephalic. Pupils are equal, round. Sclerae anicteric. Conjunctivae are clear. Mucous membranes of the mouth are moist. Neck is supple. There is no jugular venous distention. No carotid bruit is heard. CHEST EXAMINATION: Lungs are clear to auscultation. No chest wall tenderness is noted on palpation or with deep breathing. HEART EXAMINATION: Heart regular rate and rhythm. S1, S2 heard. No murmurs, gallops or rub. ABDOMEN: Soft, nontender. Bowel sounds are heard. EXTREMITIES: 2+ peripheral pulses with no evidence of peripheral edema and no calf tenderness noted. NEUROLOGIC EXAMINATION: Patient is awake, alert and oriented x1 to self only. IMPRESSION AND PLAN: Sepsis Altered mental status Elevated troponin, likely related to infection and/or dehydration Hypertension Diabetes Dementia Parkinson's PLAN: Echocardiogram results reviewed and discussed with son at bedside. She is not complaining of any chest pain or shortness of breath. Elevated troponin is likely secondary to infection or dehydration. Continue metoprolol and BP stabilizes. No further recommendations from cardiology. Cardiology to sign off, please call with further questions. I am dictating on behalf of Dr. Ajith Combs's history/physical and assessment/plan. Past Medical History Past Medical History: Cancer, Diabetes Mellitus, GERD/Reflux, Hypertension, Memory Impairment Additional Past Medical History / Comment(s): BREAST CANCER WITH RADIATION [place], parkinsons,seen at wound center open infection to left grt toe. left 2nd hammer toe ( RN at [facility] states pt does not feel any discomfort to left foot). OSTEOPOROSIS. "SWELLING IN FEET". History of Any Multi-Drug Resistant Organisms: None Reported Past Surgical History: Bowel Resection, Joint Replacement, Tonsillectomy Additional Past Surgical History / Comment(s): ILEOSTOMY, partial mastectomy Past Anesthesia/Blood Transfusion Reactions: No Reported Reaction Past Psychological History: Depression Smoking Status: Former smoker Past Alcohol Use History: None Reported Past Drug Use History: None Reported - Past Family History Mother Additional Family Medical History / Comment(s): in 50s heart Father Additional Family Medical History / Comment(s): alzheimer Medications and Allergies Home Medications Medication Instructions Recorded Confirmed Type Carbidopa-Levodopa 25-100 mg 1 tab PO TID@0800,1300,199905/21/22 12/18/22 History [Sinemet 25-100 mg] Famotidine 20 mg PO BID@0800,199905/21/22 12/18/22 History Furosemide [Lasix] 20 mg PO DAILY@79905/21/22 12/18/22 History Irbesartan [Avapro] 150 mg PO DAILY@79905/21/22 12/18/22 History Metoprolol Succinate (ER) [Toprol 25 mg PO DAILY@0805/21/22 12/18/22 History XL] Vit C/E/Zn/Coppr/Lutein/Zeaxan 1 tab PO BID@08,199905/21/22 12/18/22 History [Preservision Areds 2 Chew Tab] carBAMazepine [TEGretol] 200 mg PO BID@0800,2000 05/21/22 12/18/22 History Aspirin 81 mg PO DAILY@1200 07/16/22 12/18/22 History Acetaminophen Tab [Tylenol] 650 mg PO Q6H PRN 09/27/22 12/18/22 History Denosumab [Prolia] 60 mg SQ DIRECTED 09/27/22 12/18/22 History Prevagen Chew Mixed Barber 30 1 tab PO DAILY@0800 09/27/22 12/18/22 History Refresh Optive Gel Drops 1 drop BOTH EYES TID@0800,1300,2000 09/27/22 12/18/22 History Ensure Enlive 120 - 237 ml PO TID@0800,1200,1700 12/18/22 12/18/22 History HYDROcodone/APAP 5-325MG [[place] 5] 1 tab PO Q4H PRN 12/18/22 12/18/22 History Magic Cup 118 ml PO DAILY@1700 12/18/22 12/18/22 History Magnesium Hydroxide [Milk of 7,200 mg PO DAILY PRN 12/18/22 12/18/22 History Magnesia Concentrate] Na Phos,M-B/Na Phos,Di-Ba [Fleet 133 ml RECTAL DAILY PRN 12/18/22 12/18/22 History Adult] Sennosides-Docusate Sodium 2 tab PO DAILY@0800 12/18/22 12/18/22 History [Senokot-S] amLODIPine [Norvasc] 2.5 mg PO HS@2100 12/18/22 12/18/22 History bisacodyL [Dulcolax] 10 mg RECTAL DAILY PRN 12/18/22 12/18/22 History Allergies Allergy/AdvReac Type Severity Reaction Status Date / Time Sulfa (Sulfonamide Allergy Swelling Verified 12/18/22 11:15 Antibiotics) Tetracyclines Allergy Unknown Verified 12/18/22 11:15 Physical Exam Vitals: Vital Signs Temp Pulse Pulse Resp BP BP Pulse Ox 12/19/22 09:57 97 12/19/22 09:40 98.2 F 67 16 156/80 95 12/19/22 04:00 98.5 F 72 18 148/65 94 L 12/19/22 02:00 72 18 12/19/22 00:00 97.8 F 70 18 143/73 97 12/18/22 20:00 66 14 12/18/22 18:37 97.1 F L 66 14 129/64 100 12/18/22 17:00 57 L 16 104/54 99 12/18/22 15:00 59 L 17 84/39 100 12/18/22 14:50 56 L 17 91/56 100 12/18/22 14:40 61 17 75/51 100 12/18/22 14:30 61 17 90/50 100 12/18/22 14:15 62 16 108/40 100 12/18/22 13:45 98.4 F 67 98/44 100 12/18/22 13:00 102/54 12/18/22 12:25 86/42 12/18/22 12:15 80/42 12/18/22 12:00 73/39 Intake and Output 12/18/22 12/19/22 12/19/22 22:59 06:59 14:59 Intake Total 118 Output Total 870 300 50 Balance -870 -300 68 Intake: Oral 118 Output: Urine 750 300 Stool 120 50 Other: Weight 40.823 kg Results 12/19/22 07:12 12/19/22 07:12 Cardiac Enzymes 12/18/22 12/18/22 Range/Units 17:15 22:40 Troponin I 0.111 H* 0.096 H* (0.000-0.034) ng/mL CBC 12/19/22 Range/Units 07:12 WBC 11.9 H (3.8-10.6) k/uL RBC 3.12 L (3.80-5.40) m/uL Hgb 10.8 L (11.4-16.0) gm/dL Hct 32.0 L (34.0-46.0) % Plt Count 189 (150-450) k/uL Comprehensive Metabolic Panel 12/19/22 Range/Units 07:12 Sodium 137 (137-145) mmol/L Potassium 3.7 (3.5-5.1) mmol/L Chloride 112 H (98-107) mmol/L Carbon Dioxide 17 L (22-30) mmol/L BUN 19 H (7-17) mg/dL Creatinine 1.06 H (0.52-1.04) mg/dL Glucose 114 H (74-99) mg/dL Calcium 7.9 L (8.4-10.2) mg/dL Current Medications Generic Name Dose Route Start Last Admin Trade Name Freq PRN Reason Stop Dose Admin Acetaminophen 650 mg 12/18/22 14:38 Acetaminophen Tab 325 Mg Tab PO Q6HR PRN Mild Pain or Fever > 100.5 Hydrocodone Bitart/Acetaminophen 1 each 12/18/22 19:09 Hydrocodone/Apap 5-325mg 1 Each Tab PO Q6HR PRN Pain Artificial Tears 1 drops 12/18/22 20:00 12/19/22 09:26 Artificial Tears-Hypromellose Drops 15 Ml Btl BOTH EYES 1 drops TID@0800,1300,2000 [facility] Administration Aspirin 81 mg 12/19/22 12:00 Aspirin 81 Mg PO DAILY@1200 [facility] Carbamazepine 200 mg 12/18/22 20:00 12/19/22 09:26 Carbamazepine 200 Mg Tab PO 200 mg BID@0800,2000 [facility] Administration Carbidopa/Levodopa 1 each 12/18/22 20:00 12/19/22 09:26 Carbidopa-Levodopa 25-100 Mg 1 Each Tab PO 1 each TID@0800,1300,2000 [facility] Administration Famotidine 20 mg 12/18/22 20:00 12/19/22 09:26 Famotidine 20 Mg Tab PO 20 mg BID@0800,2000 [facility] Administration Heparin Sodium (Porcine) 5,000 unit 12/19/22 00:00 12/19/22 09:26 Heparin Sodium,Porcine/Pf 5,000 Unit/0.5 Ml Syringe SQ 5,000 unit Q8HR [facility] Administration Cefepime HCl 1 gm/ Sodium 50 mls @ 100 mls/hr 12/18/22 21:00 12/19/22 09:26 Chloride IVPB 100 mls/hr Q12HR [facility] Administration Vancomycin HCl 750 mg/ Sodium 250 mls @ 125 mls/hr 12/19/22 10:00 Chloride IVPB 12/19/22 11:59 ONCE ONE Sodium Chloride 1,000 mls @ 75 mls/hr 12/18/22 22:15 12/18/22 23:15 Saline 0.9% IV Not Given .[id number] [facility] Miscellaneous Information 1 each 12/18/22 12:13 Vancomycin Iv Per Pharmacy 1 Each Misc MISCELLANE DIRECTED PRN Per Protocol Protocol Multivitamins/Minerals 1 each 12/18/22 20:00 12/19/22 09:27 Vit A,C & F-Txvsbl-Ylutlxot 1 Each Tab PO 1 each BID@0800,2000 [facility] Administration Naloxone HCl 0.2 mg 12/18/22 14:38 Naloxone 0.4 Mg/Ml 1 Ml Vial IV Q2M PRN Opioid Reversal Senna/Docusate Sodium 2 each 12/18/22 19:09 Sennosides-Docusate Sodium 1 Each Tab PO DAILY@0800 PRN Constipation Intake and Output 12/18/22 12/19/22 12/19/22 22:59 06:59 14:59 Intake Total 118 Output Total 870 300 50 Balance -870 -300 68 Intake: Oral 118 Output: Urine 750 300 Stool 120 50 Other: Weight 40.823 kg 12/19/22 07:12 12/19/22 07:12
--- NOTE | 2022-12-19 14:08 | CDI ---
Documentation Clarification Form Date: 12/19/2022 1:37:09 PM From: Mame sEcalona RN CCDS Phone: [phone] Admit Date: 12/18/2022 1:56:00 PM Patient Name: Jennifer Vargas V Visit Number: [id number] Discharge Date: ATTENTION: The Clinical Documentation Specialists (CDI) and [facility] Coding Staff appreciate your assistance in clarifying documentation. Please respond to the clarification below the line at the bottom and electronically sign. The CDI & [facility] Coding staff will review the response and follow-up if needed. Please note: Queries are made part of the Legal Health Record. If you have any questions, please contact the author of this message via ITS. Dr. Denver Vines Elevated troponin level likely due to sepsis is documented 12/18, H&P. Additional clarification regarding the Troponin level is requested. Patient History/Risk Factors: 87-year-old female [facility] for altered mental status. Medical History: 09/25 Left hip fracture; Type 2 DM, Parkinsons, Memory impairment and HTN. 12/18, H&P. Clinical Indicators: VSS, 12/18: B/P 127/65; HR 101; Temp 100.4F Oral; RR 16; SpO2 98% room air LABS, 12/18: Wbc 18.2; Neutrophils 16.6; Lactic acid 2.2 Troponin, 12/18: 0.074; 0.111; 0.096 EKG Results, 12/18: Sinus rhythm with occasional supraventricular premature complexes left axis deviation. Possible anterior myocardial infraction of indeterminate age. Treatment:12/18 0.9NS 2L bolus; 12/18 Cefepime IVPB x 1; Vancomycin IVPB x 1; 12/18 Cefepime IVPB Q12H; 12/19 Vancomycin IVPB x 1 Please clarify the Elevated troponin level , if known: [ ] Type 2 ND due to Sepsis [ ] Type 2 ND due to other (please specify ) [ ] Unable to determine [ ] Other Condition, please specify Documented on Progress note 12/[address] Vines Elevated troponin level Type II ND due to sepsis. (Template Last Revised: December 2020) MTDD
--- NOTE | 2022-12-19 14:30 | CDI ---
Documentation Clarification Form Date: 12/19/2022 2:14:03 PM From: Mame Escalona RN CCDS Phone: [phone] Admit Date: 12/18/2022 1:56:00 PM Patient Name: Jennifer Vargas V Visit Number: [id number] Discharge Date: ATTENTION: The Clinical Documentation Specialists (CDI) and [facility] Coding Staff appreciate your assistance in clarifying documentation. Please respond to the clarification below the line at the bottom and electronically sign. The CDI & [facility] Coding staff will review the response and follow-up if needed. Please note: Queries are made part of the Legal Health Record. If you have any questions, please contact the author of this message via ITS. Dr. Kristopher Brown MD The Registered Dietitian assessment 12/19, has documented that the patient has mild clavicle, worship muscle wasting buccal fat pad loss. Based on this information and the findings below, is there an additional diagnosis that is clinically appropriate for this patient? Patient History/Risk Factors: 87-year-old female presents to the ED from [facility] for altered mental status. Medical History: 09/25 Left hip fracture; Type 2 DM, Parkinsons, Memory impairment and HTN. 12/18, H&P Clinical Indicators: RD Consult Assessment: Current BMI: 15.4kg Nutritional History: GERD, cancer, DM, HTN, memory impairment, parkinsons disease. Diagnosis: Sepsis, AMS, Hypotension. Nutritional Assessment: Nutrition intake poor 0-25% consumed, Regular diet. Patient is eating very slow, confused about meals and what is on tray. Appetite Fair. Physical Findings: Mild clavical, worship muscle wasting and buccal fat pad fat loss. 18% weight loss x three months, UBW from previous assessment in 09/2022 Related to altered mental status causing poor appetite, evidenced by 25% of meals consumed, BMI 14.5kg, Muscle and fat wasting. Goals: weight gain, Increased PO intake from 50% to 75%. Meeding 75% of estimated nutritional needs. Treatment: Dietary Consult: See above Supplements: Ensure Compact TID. Regular diet and nutrition supplements as needed. Monitor PO and supplement intake. Is there an additional diagnosis that is clinically appropriate for this patient? [ ] Severe Protein-Calorie Malnutrition [ ] Other condition, please specify [ ] Unable to Determine (Template Last Revised: December 2020) Severe Protein-Calorie Malnutrition MTDD
[2022-12-19] MEDS: SODIUM CHLORIDE 0.9% 1,000 ML IV SCH ×2 (16:05→19:58)
[2022-12-19 16:30] LABS: Glucose,Whole Blood 116 mg/dL (70-110)
[2022-12-19] MEDS ORDERED: NON FORMULARY DRUG (Magic Cup 1 EACH Ml) PO SCH (17:00)
[2022-12-19 20:12] LABS: Glucose,Whole Blood 225 mg/dL (70-110)
--- NOTE | 2022-12-19 22:14 | P.CONS ---
History of Present Illness - Reason for Consult Consult date: 12/19/22 Sepsis Requesting physician: [place] - Chief Complaint Mental status changes x one day - History of Present Illness Patient is a 87-year-old female with a past medical history significant for diabetes mellitus hypertension breast cancer memory impairment snf resident patient was sent to the ER from the local snf via EMS for evaluation of mental status changes apparently patient was eating breakfast when she did have brief episode where she stopped responding to the staff and was drooling patient is alert oriented x2 on her baseline and no recent history of any fall patient was noted to be febrile on arrival to the hospital via EMS on presentation to the hospital patient did have a temperature 100.4 F patient was not hypotensive or hypoxic and no need for supplemental oxygen patient did have white count of 18.2 with a left shift BUN/creatinine has been mildly elevated lactic acid was elevated 2.2 patient did have a positive UA influenza testing was negative patient did have a chest x-ray chronic changes and mild cardiomegaly no acute cardiopulmonary process CT brain was negative for any bleed patient was started on cefepime infectious disease was consulted for further management of antibiotic therapy. Patient evaluated this morning is afebrile patient is slightly more awake alert she denies any headache breathing comfortably on room air no chest pain shortness with or cough no abdominal pain did have some vague urinary symptoms unable to quantify it any further no vomiting or diarrhea Review of Systems Positive points has been mentioned in HPI complete review could not be obtained because of his underlying mental status Past Medical History Past Medical History: Cancer, Diabetes Mellitus, GERD/Reflux, Hypertension, Memory Impairment Additional Past Medical History / Comment(s): BREAST CANCER WITH RADIATION [place], parkinsons,seen at wound center open infection to left grt toe. left 2nd hammer toe ( RN at [facility] states pt does not feel any discomfort to left foot). OSTEOPOROSIS. "SWELLING IN FEET". History of Any Multi-Drug Resistant Organisms: None Reported Past Surgical History: Bowel Resection, Joint Replacement, Tonsillectomy Additional Past Surgical History / Comment(s): ILEOSTOMY, partial mastectomy Past Anesthesia/Blood Transfusion Reactions: No Reported Reaction Past Psychological History: Depression Smoking Status: Former smoker Past Alcohol Use History: None Reported Past Drug Use History: None Reported - Past Family History Mother Additional Family Medical History / Comment(s): in 50s heart Father Additional Family Medical History / Comment(s): alzheimer Medications and Allergies Home Medications Medication Instructions Recorded Confirmed Type Carbidopa-Levodopa 25-100 mg 1 tab PO TID@0800,1300,199905/21/22 12/18/22 History [Sinemet 25-100 mg] Famotidine 20 mg PO BID@0800,199905/21/22 12/18/22 History Irbesartan [Avapro] 150 mg PO DAILY@0800 05/21/22 12/18/22 History Metoprolol Succinate (ER) [Toprol 25 mg PO DAILY@0800 05/21/22 12/18/22 History XL] Vit C/E/Zn/Coppr/Lutein/Zeaxan 1 tab PO BID@0800,199905/21/22 12/18/22 History [Preservision Areds 2 Chew Tab] carBAMazepine [TEGretol] 200 mg PO BID@0800,199905/21/22 12/18/22 History Aspirin 81 mg PO DAILY@1200 07/16/22 12/18/22 History Acetaminophen Tab [Tylenol] 650 mg PO Q6H PRN 09/27/22 12/18/22 History Denosumab [Prolia] 60 mg SQ DIRECTED 09/27/22 12/18/22 History Prevagen Chew Mixed Barber 30 1 tab PO DAILY@0800 09/27/22 12/18/22 History Refresh Optive Gel Drops 1 drop BOTH EYES TID@0800,1300,199909/27/22 12/18/22 History Ensure Enlive 120 - 237 ml PO TID@0800,1200,1700 12/18/22 12/18/22 History Magic Cup 118 ml PO DAILY@1700 12/18/22 12/18/22 History Magnesium Hydroxide [Milk of 7,200 mg PO DAILY PRN 12/18/22 12/18/22 History Magnesia Concentrate] Na Phos,M-B/Na Phos,Di-Ba [Fleet 133 ml RECTAL DAILY PRN 12/18/22 12/18/22 History Adult] Sennosides-Docusate Sodium 2 tab PO DAILY@0800 12/18/22 12/18/22 History [Senokot-S] amLODIPine [Norvasc] 2.5 mg PO HS@209912/18/22 12/18/22 History bisacodyL [Dulcolax] 10 mg RECTAL DAILY PRN 12/18/22 12/18/22 History Ciprofloxacin HCl [Cipro] 500 mg PO BID 5 Days #10 tab 12/22/22 Rx Furosemide [Lasix] 20 mg PO DAILY #30 tab 12/22/22 Rx HYDROcodone/APAP 5-325MG [Hensel 1 tab PO Q4H PRN #3 tab 12/22/22 Rx 5-325] Allergies Allergy/AdvReac Type Severity Reaction Status Date / Time Sulfa (Sulfonamide Allergy Swelling Verified 12/18/22 11:15 Antibiotics) Tetracyclines Allergy Unknown Verified 12/18/22 11:15 Physical Exam Vitals: Vital Signs Temp Pulse Pulse Resp BP BP Pulse Ox 12/19/22 09:57 97 12/19/22 09:40 98.2 F 67 16 156/80 95 12/19/22 04:00 98.5 F 72 18 148/65 94 L 12/19/22 02:00 72 18 12/19/22 00:00 97.8 F 70 18 143/73 97 12/18/22 20:00 66 14 12/18/22 18:37 97.1 F L 66 14 129/64 100 12/18/22 17:00 57 L 16 104/54 99 12/18/22 15:00 59 L 17 84/39 100 12/18/22 14:50 56 L 17 91/56 100 12/18/22 14:40 61 17 75/51 100 12/18/22 14:30 61 17 90/50 100 12/18/22 14:15 62 16 108/40 100 12/18/22 13:45 98.4 F 67 98/44 100 12/18/22 13:00 102/54 12/18/22 12:25 86/42 12/18/22 12:15 80/42 12/18/22 12:00 73/39 Intake and Output 12/18/22 12/19/22 12/19/22 22:59 06:59 14:59 Intake Total 118 Output Total 870 300 50 Balance -870 -300 68 Intake: Oral 118 Output: Urine 750 300 Stool 120 50 Other: Weight 40.823 kg GENERAL DESCRIPTION: Elderly female lying in bed, no distress. No tachypnea or accessory muscle of respiration use. HEENT: Shows Pallor , no scleral icterus. Oral mucous membrane is dry. No pharyngeal erythema or thrush NECK: Trachea central, no thyromegaly. LUNGS: Unlabored breathing. Clear to auscultation anteriorly. No wheeze or crackle. HEART: S1, S2, regular rate and rhythm. No loud murmur ABDOMEN: Soft, no tenderness , guarding or rigidity, no organomegaly EXTREMITIES: No edema of feet. SKIN: No rash, no masses palpable. NEUROLOGICAL: The patient is awake, alert, oriented x1, mood and affect normal. Results CBC & Chem 7: 12/22/22 10:10 12/22/22 10:10 Labs: Abnormal Lab Results - Last 24 Hours (Table) 12/18/22 12/18/22 12/18/22 Range/Units 13:30 17:15 19:09 WBC (3.8-10.6) k/uL RBC (3.80-5.40) m/uL Hgb (11.4-16.0) gm/dL Hct (34.0-46.0) % MCV (80.0-100.0) fL Neutrophils # (1.3-7.7) k/uL Chloride (98-107) mmol/L Carbon Dioxide (22-30) mmol/L BUN (7-17) mg/dL Creatinine (0.52-1.04) mg/dL Glucose (74-99) mg/dL POC Glucose (mg/dL) 160 H (70-110) mg/dL Calcium (8.4-10.2) mg/dL Troponin I 0.111 H* (0.000-0.034) ng/mL Urine Appearance Turbid H (Clear) Urine Protein 1+ H (Negative) Urine Blood Small H (Negative) Ur Leukocyte Esterase Large H (Negative) Urine WBC >182 H (0-5) /hpf Urine WBC Clumps Few H (None) /hpf Urine Bacteria Many H (None) /hpf Urine Yeast (Budding) Moderate H (None) /hpf 12/18/22 12/18/22 12/19/22 Range/Units 19:54 22:40 05:50 WBC (3.8-10.6) k/uL RBC (3.80-5.40) m/uL Hgb (11.4-16.0) gm/dL Hct (34.0-46.0) % MCV (80.0-100.0) fL Neutrophils # (1.3-7.7) k/uL Chloride (98-107) mmol/L Carbon Dioxide (22-30) mmol/L BUN (7-17) mg/dL Creatinine (0.52-1.04) mg/dL Glucose (74-99) mg/dL POC Glucose (mg/dL) 152 H 121 H (70-110) mg/dL Calcium (8.4-10.2) mg/dL Troponin I 0.096 H* (0.000-0.034) ng/mL Urine Appearance (Clear) Urine Protein (Negative) Urine Blood (Negative) Ur Leukocyte Esterase (Negative) Urine WBC (0-5) /hpf Urine WBC Clumps (None) /hpf Urine Bacteria (None) /hpf Urine Yeast (Budding) (None) /hpf 12/19/22 12/19/22 Range/Units 07:12 07:12 WBC 11.9 H (3.8-10.6) k/uL RBC 3.12 L (3.80-5.40) m/uL Hgb 10.8 L (11.4-16.0) gm/dL Hct 32.0 L (34.0-46.0) % MCV 102.5 H (80.0-100.0) fL Neutrophils # 9.8 H (1.3-7.7) k/uL Chloride 112 H (98-107) mmol/L Carbon Dioxide 17 L (22-30) mmol/L BUN 19 H (7-17) mg/dL Creatinine 1.06 H (0.52-1.04) mg/dL Glucose 114 H (74-99) mg/dL POC Glucose (mg/dL) (70-110) mg/dL Calcium 7.9 L (8.4-10.2) mg/dL Troponin I (0.000-0.034) ng/mL Urine Appearance (Clear) Urine Protein (Negative) Urine Blood (Negative) Ur Leukocyte Esterase (Negative) Urine WBC (0-5) /hpf Urine WBC Clumps (None) /hpf Urine Bacteria (None) /hpf Urine Yeast (Budding) (None) /hpf Microbiology - Last 24 Hours (Table) 12/18/22 10:30 Urine Culture - Preliminary Urine,Voided Assessment and Plan (1) Urinary tract infection Status: Acute Code(s): N39.0 - URINARY TRACT INFECTION, SITE NOT SPECIFIED SNOMED Code(s): 28359907 Plan: 1patient to the hospital with sepsis in this patient did have fever elevated white count elevated lactic acid positive UA source likely urinary and likely from enteric gram-negative pathogen keeping in mind and snf resident will need to cover for resistant gram-negative. 2patient to continue cefepime 1 g every 12 while waiting for sensitivity to finalize 3gentle IV fluid Family at the bedside question concern answered We will follow on clinical condition and cultures to further adjust medication if needed Thank you for this consultation we will follow the patient along with you Time with Patient: Greater than 30
[2022-12-20 06:04] LABS: Glucose,Whole Blood 115 mg/dL (70-110)
[2022-12-20 07:04] LABS: Vancomycin,Random 10.6 ug/mL
[2022-12-20] MEDS: VIT A,C & E-LUTEIN-MINERALS 1 EACH TAB PO SCH ×2 (08:55→20:20)
[2022-12-20] MEDS: CARBIDOPA-LEVODOPA 25-100 MG 1 EACH TAB PO SCH ×3 (08:55→20:20)
[2022-12-20] MEDS: HEPARIN SODIUM,PORCINE/PF 5,000 UNIT/0.5 ML SYRINGE SQ SCH ×3 (08:55→23:17)
[2022-12-20] MEDS: carBAMazepine 200 MG TAB PO SCH ×2 (08:55→20:20)
[2022-12-20] MEDS: ARTIFICIAL TEARS-HYPROMELLOSE DROPS 15 ML BTL BOTH EYES SCH ×3 (08:56→20:20)
[2022-12-20] MEDS: CEFEPIME 1 GM in SODIUM CHLORIDE 0.9% 50 ML IVPB SCH (09:02)
[2022-12-20] MEDS: FAMOTIDINE 20 MG TAB PO SCH (09:02)
[2022-12-20] MEDS ORDERED: VANCOMYCIN 750 MG in SODIUM CHLORIDE 0.9% 250 ML IVPB SCH (11:00)
[2022-12-20 12:10] LABS: Glucose,Whole Blood 129 mg/dL (70-110)
[2022-12-20] MEDS: ASPIRIN 81 MG PO SCH (12:15)
[2022-12-20] MEDS: SODIUM CHLORIDE 0.9% 1,000 ML IV SCH (15:59)
[2022-12-20 16:58] LABS: Glucose,Whole Blood 159 mg/dL (70-110)
[2022-12-20 20:17] LABS: Glucose,Whole Blood 160 mg/dL (70-110)
[2022-12-20] MEDS: CEFEPIME 2 GM in SODIUM CHLORIDE 0.9% 100 ML IVPB SCH (20:21)
--- NOTE | 2022-12-20 22:11 | P.PN ---
Subjective Progress Note Date: 12/20/22 Principal diagnosis: Urinary tract infection Patient is a 87-year-old female with a past medical history significant for diabetes mellitus hypertension breast cancer memory impairment longterm resident patient was sent to the ER from the local longterm via EMS for evaluation of mental status changes , patient did have a low-grade fever positive UA concerning for symptomatic UTI. On today's evaluation that is 12/21/2019 the patient is afebrile patient is slig htly more awake and alert today breathing comfortably on room air, denies any chest pain shortness of breath or cough no abdominal pain or diarrhea Objective - Vital Signs Vital signs: Vital Signs Temp 98.2 F 12/20/22 04:00 Pulse 65 12/20/22 04:00 Resp 16 12/20/22 04:00 BP 138/65 12/20/22 04:00 Pulse Ox 98 12/20/22 04:00 FiO2 Intake & Output 12/19/22 12/20/22 12/20/22 18:59 06:59 18:59 Intake Total 118 Output Total 100 1200 Balance 18 -1200 Weight 40.823 kg Intake: Oral 118 Output: Urine 900 Stool 100 300 - Exam GENERAL DESCRIPTION: An elderly female lying in bed in no distress RESPIRATORY SYSTEM: Unlabored breathing , decreased breath sounds at bases HEART: S1 S2 regular rate and rhythm , ABDOMEN: Soft , no tenderness EXTREMITIES: No edema feet - Labs CBC & Chem 7: 12/19/22 07:12 12/20/22 06:12 Labs: Abnormal Lab Results - Last 24 Hours (Table) 12/19/22 12/19/22 12/19/22 Range/Units 07:12 11:40 16:26 POC Glucose (mg/dL) 156 H 116 H (70-110) mg/dL Vitamin B12 1293.0 H (200.0-944.0) pg/mL 12/19/22 12/20/22 Range/Units 20:10 06:03 POC Glucose (mg/dL) 225 H 115 H (70-110) mg/dL Vitamin B12 (200.0-944.0) pg/mL Microbiology - Last 24 Hours (Table) 12/18/22 10:30 Urine Culture - Preliminary Urine,Voided Gram Neg Bacilli 12/18/22 10:30 Blood Culture - Preliminary Blood No Growth after 24 hours 12/18/22 10:45 Blood Culture - Preliminary Blood No Growth after 24 hours Assessment and Plan (1) Urinary tract infection Current Visit: Yes Status: Acute Code(s): N39.0 - URINARY TRACT INFECTION, SITE NOT SPECIFIED SNOMED Code(s): 60572780 Plan: 1patient to the hospital with sepsis in this patient did have fever elevated white count elevated lactic acid positive UA source likely urinary and likely from enteric gram-negative pathogen keeping in mind longterm resident will need to cover for resistant gram-negative. 2patient to continue cefepime 1 g every 12 while waiting for sensitivity to finalize and monitor clinical course closely Time with Patient: Less than 30
[2022-12-21] MEDS: SODIUM CHLORIDE 0.9% 1,000 ML IV SCH ×2 (03:42→16:19)
[2022-12-21 05:47] LABS: Glucose,Whole Blood 176 mg/dL (70-110)
[2022-12-21 08:08] LABS: Basophils % (A) 0 %; Eosinophils # (A) 0.1 k/uL (0-0.7); Eosinophils % (A) 1 %; HGB 10.5 gm/dL (11.4-16.0); Lymphocytes # (A) 1.6 k/uL (1.0-4.8); Lymphocytes % (A) 19 %; MCH 33.8 pg (25.0-35.0); MCHC 33.8 g/dL (31.0-37.0); MCV 100.2 fL (80.0-100.0); Macrocytosis Slight; Mean Platelet Volume 7.8; Monocytes # (A) 0.4 k/uL (0-1.0); Monocytes % (A) 6 %; Neutrophils # (A) 5.9 k/uL (1.3-7.7); Neutrophils % (A) 73 %; Platelet Count 184 k/uL (150-450); RDW 14.5 % (11.5-15.5); WBC 8.1 k/uL (3.8-10.6)
[2022-12-21 08:24] LABS: African American GFR (CKD) >90 (>60 ml/min/1.73 sqM); Anion Gap 6 mmol/L; Blood Urea Nitrogen 10 mg/dL (7-17); Calcium 7.6 mg/dL (8.4-10.2); Carbon Dioxide 22 mmol/L (22-30); Chloride 110 mmol/L (98-107); Glucose 145 mg/dL (74-99); Non-African American GFR(CKD) 78 (>60 ml/min/1.73 sqM); Potassium 2.8 mmol/L (3.5-5.1); Sodium 138 mmol/L (137-145)
[2022-12-21] MEDS: CEFEPIME 2 GM in SODIUM CHLORIDE 0.9% 100 ML IVPB SCH ×2 (08:32→21:40)
[2022-12-21] MEDS: HEPARIN SODIUM,PORCINE/PF 5,000 UNIT/0.5 ML SYRINGE SQ SCH ×3 (08:32→23:39)
[2022-12-21] MEDS: FAMOTIDINE 20 MG TAB PO SCH (08:32)
[2022-12-21] MEDS: carBAMazepine 200 MG TAB PO SCH ×2 (08:32→21:00)
[2022-12-21] MEDS: VIT A,C & E-LUTEIN-MINERALS 1 EACH TAB PO SCH ×2 (08:32→21:00)
[2022-12-21] MEDS: CARBIDOPA-LEVODOPA 25-100 MG 1 EACH TAB PO SCH ×3 (08:32→21:00)
[2022-12-21] MEDS: ARTIFICIAL TEARS-HYPROMELLOSE DROPS 15 ML BTL BOTH EYES SCH ×3 (08:33→21:00)
[2022-12-21] MEDS: ASPIRIN 81 MG PO SCH (11:53)
[2022-12-21] MEDS: POTASSIUM CHLORIDE 20 MEQ in WATER FOR INJECTION 1 100ML.BAG IVPB SCH ×2 (11:53→13:57)
[2022-12-21 12:13] LABS: Glucose,Whole Blood 130 mg/dL (70-110)
[2022-12-21 13:01] VITALS: RESP 16
[2022-12-21] MEDS ORDERED: Potassium Replacement Protocol 1 EACH MISC MISCELLANE PRN (13:45)
[2022-12-21 16:52] LABS: Calcium 7.8 mg/dL (8.4-10.2); Potassium 3.8 mmol/L (3.5-5.1)
[2022-12-21 17:05] LABS: Glucose,Whole Blood 155 mg/dL (70-110)
[2022-12-21 20:50] LABS: Glucose,Whole Blood 195 mg/dL (70-110)
[2022-12-21] MEDS ORDERED: hydrALAZINE HCL 20 MG/ML 1 ML VIAL IVP PRN (22:15)
--- NOTE | 2022-12-21 22:46 | P.PN ---
Subjective Progress Note Date: 12/21/22 Principal diagnosis: Urinary tract infection Patient is a 87-year-old female with a past medical history significant for diabetes mellitus hypertension breast cancer memory impairment assisted resident patient was sent to the ER from the local assisted via EMS for evaluation of mental status changes , patient did have a low-grade fever positive UA concerning for symptomatic UTI. On today's evaluation that is 12/22/2019 the patient remains to be afebrile gini ent is breathing comfortably on room air, the patient denies any chest pain shortness of breath or cough no abdominal pain or diarrhea Objective - Vital Signs Vital signs: Vital Signs Temp 97.9 F 12/21/22 03:41 Pulse 71 12/21/22 03:41 Resp 16 12/21/22 03:41 BP 155/78 12/21/22 03:41 Pulse Ox 96 12/21/22 03:41 FiO2 Intake & Output 12/20/22 12/21/22 12/21/22 18:59 06:59 18:59 Intake Total 2009 Output Total 900 1300 Balance 1110 -1300 Intake: Intake, IV Titration 1500 Amount Cefepime 1 gm In Sodium 50 Chloride 0.9% 50 ml @ 100 mls/hr IVPB Q12HR NISHA Rx #:[id number] Sodium Chloride 0.9% 1, 1200 000 ml @ 75 mls/hr IV . [id number] NISHA Rx#:[id number] Vancomycin 750 mg In 250 Sodium Chloride 0.9% 250 ml @ 125 mls/hr IVPB Q24H NISHA Rx#:[id number] Oral 510 Output: Urine 800 1100 Stool 100 200 - Exam GENERAL DESCRIPTION: An elderly female lying in bed in no distress RESPIRATORY SYSTEM: Unlabored breathing , decreased breath sounds at bases HEART: S1 S2 regular rate and rhythm , ABDOMEN: Soft , no tenderness EXTREMITIES: No edema feet - Labs CBC & Chem 7: 12/21/22 06:14 12/21/22 16:14 Labs: Abnormal Lab Results - Last 24 Hours (Table) 12/20/22 12/20/22 12/20/22 Range/Units 11:47 16:55 20:16 RBC (3.80-5.40) m/uL Hgb (11.4-16.0) gm/dL Hct (34.0-46.0) % MCV (80.0-100.0) fL Potassium (3.5-5.1) mmol/L Chloride (98-107) mmol/L Glucose (74-99) mg/dL POC Glucose (mg/dL) 129 H 159 H 160 H (70-110) mg/dL Calcium (8.4-10.2) mg/dL 12/21/22 12/21/22 12/21/22 Range/Units 05:45 06:14 06:14 RBC 3.10 L (3.80-5.40) m/uL Hgb 10.5 L (11.4-16.0) gm/dL Hct 31.0 L (34.0-46.0) % MCV 100.2 H (80.0-100.0) fL Potassium 2.8 L (3.5-5.1) mmol/L Chloride 110 H (98-107) mmol/L Glucose 145 H (74-99) mg/dL POC Glucose (mg/dL) 176 H (70-110) mg/dL Calcium 7.6 L (8.4-10.2) mg/dL Microbiology - Last 24 Hours (Table) 12/18/22 10:30 Urine Culture - Final Urine,Voided Klebsiella oxytoca 12/18/22 10:30 Blood Culture - Preliminary Blood No Growth after 48 hours 12/18/22 10:45 Blood Culture - Preliminary Blood No Growth after 48 hours Assessment and Plan (1) Urinary tract infection Current Visit: Yes Status: Acute Code(s): N39.0 - URINARY TRACT INFECTION, SITE NOT SPECIFIED SNOMED Code(s): 20282366 Plan: 1patient to the hospital with sepsis in this patient did have fever elevated white count elevated lactic acid positive UA source likely urinary and likely from enteric gram-negative pathogen keeping in mind assisted resident will need to cover for resistant gram-negative. 2patient urine cultures have been finalized with Klebsiella that is resistant to ceftriaxone but sensitive to cefepime, patient to continue cefepime 1 g every 12 while inpatient and plan to finish therapy with oral Cipro Time with Patient: Less than 30
[2022-12-22] MEDS ORDERED: amLODIPine 2.5 MG TAB PO SCH (02:44)
--- NOTE | 2022-12-22 02:46 | P.PN ---
Subjective Progress Note Date: 12/19/22 Patient is a 87-year-old female with a known history of hypertension, diabetes type 2 [id number], dementia, Parkinson's disease and history of fall in September 2022 with a left hip fracture status post surgery was sent to ER from [facility] due to complaints of altered mental status. As per EMS report patient was having breakfast this morning when she had a brief episode of not responding and altered mental status and was drooling. Patient usually awake alert and oriented x2 at baseline. As per EMS report patient was febrile in route to the hospital. No focal neurological deficit was noted. No weakness or seizures. No bowel or bladder incontinence. Currently patient is drowsy and altered and could not provide any history. On admission patient was tachycardic with heart rate 101 Tmax 100.4 and pulse ox 98% on room air and blood pressure 73/39. Patient was given total of 3 L IV fluid bolus with improvement in blood pressure. Chest x-ray showed chronic changes and mild cardiomegaly without acute pulmonary process. CT head showed BeeGentle A2 and nonspecific white matter changes with no evidence of acute hemorrhage or mass effect. EKG showed sinus rhythm with occasional supraventricular premature complexes. Laboratory data showed WBC 18.2 hemoglobin 13.7 and platelets 193 MCV 102.8 Sodium 141 potassium 4.0 chloride 107 bicarb is 22 BUN 24 and creatinine 1.52 and blood sugar is 209 and lactic acid 2.2 and troponin 0.074, 0.111 Urinalysis showed turbid with 1+ protein small blood large leukocyte esterase with related WBCs. 12/20/2022 Patient is currently resting in bed. Patient is more awake and oriented. No complaints of chest pain or shortness of breath. No nausea vomiting or abdominal pain or diarrhea. Patient is being continued on antibiotics for urinary tract infection. Patient was seen by cardiology. 2D echocardiogram showed normal LV systolic function. Laboratory data showed WBC 11.9, hemoglobin 10.8 and platelets 189 sodium 137 potassium 3.7 chloride 112 bicarb is 17 BUN 19 and creatinine 1.06 and blood sugar is 114 calcium 7.9. ID is on board. Urine culture is pending. Current medications reviewed. Objective - Vital Signs Vital signs: Vital Signs Temp 98.3 F 12/19/22 20:00 Pulse 75 12/19/22 20:00 Resp 18 12/19/22 20:00 BP 135/64 12/19/22 20:00 Pulse Ox 99 12/19/22 20:00 FiO2 Intake & Output 12/19/22 12/19/22 12/20/22 06:59 18:59 06:59 Intake Total 118 Output Total 1170 100 Balance -1170 18 Weight 40.823 kg 40.823 kg Intake: Oral 118 Output: Urine 1050 Stool 120 100 - Exam PHYSICAL EXAMINATION: Patient is lying in the bed comfortably, no acute distress, awake alert and oriented x1-2.. HEENT: Normocephalic. Neck is supple. Pupils reactive. Nostrils clear. Oral cavity is moist. Neck reveals no JVD, carotid bruits, or thyromegaly. CHEST EXAMINATION: Trachea is central. Symmetrical expansion. Lung amador clear to auscultation and percussion. CARDIAC: Normal S1, S2 with no gallops. No murmurs ABDOMEN: Soft. Bowel sounds present. Nontender. No organomegaly. No abdominal bruits. Extremities: reveal no edema. No clubbing or cyanosis Neurologically awake, alert, oriented x 1-2. Able to move extremities while in bed. Skin: No rash or skin lesions. Psychiatric: Coperative. Could not be assessed completely, Musculoskeletal: No joint swelling or deformity. - Labs CBC & Chem 7: 12/21/22 06:14 12/21/22 16:14 Labs: Abnormal Lab Results - Last 24 Hours (Table) 12/18/22 12/19/22 12/19/22 Range/Units 22:40 05:50 07:12 WBC 11.9 H (3.8-10.6) k/uL RBC 3.12 L (3.80-5.40) m/uL Hgb 10.8 L (11.4-16.0) gm/dL Hct 32.0 L (34.0-46.0) % MCV 102.5 H (80.0-100.0) fL Neutrophils # 9.8 H (1.3-7.7) k/uL Chloride (98-107) mmol/L Carbon Dioxide (22-30) mmol/L BUN (7-17) mg/dL Creatinine (0.52-1.04) mg/dL Glucose (74-99) mg/dL POC Glucose (mg/dL) 121 H (70-110) mg/dL Calcium (8.4-10.2) mg/dL Troponin I 0.096 H* (0.000-0.034) ng/mL Vitamin B12 (200.0-944.0) pg/mL 12/19/22 12/19/22 12/19/22 Range/Units 07:12 11:40 16:26 WBC (3.8-10.6) k/uL RBC (3.80-5.40) m/uL Hgb (11.4-16.0) gm/dL Hct (34.0-46.0) % MCV (80.0-100.0) fL Neutrophils # (1.3-7.7) k/uL Chloride 112 H (98-107) mmol/L Carbon Dioxide 17 L (22-30) mmol/L BUN 19 H (7-17) mg/dL Creatinine 1.06 H (0.52-1.04) mg/dL Glucose 114 H (74-99) mg/dL POC Glucose (mg/dL) 156 H 116 H (70-110) mg/dL Calcium 7.9 L (8.4-10.2) mg/dL Troponin I (0.000-0.034) ng/mL Vitamin B12 1293.0 H (200.0-944.0) pg/mL 12/19/22 Range/Units 20:10 WBC (3.8-10.6) k/uL RBC (3.80-5.40) m/uL Hgb (11.4-16.0) gm/dL Hct (34.0-46.0) % MCV (80.0-100.0) fL Neutrophils # (1.3-7.7) k/uL Chloride (98-107) mmol/L Carbon Dioxide (22-30) mmol/L BUN (7-17) mg/dL Creatinine (0.52-1.04) mg/dL Glucose (74-99) mg/dL POC Glucose (mg/dL) 225 H (70-110) mg/dL Calcium (8.4-10.2) mg/dL Troponin I (0.000-0.034) ng/mL Vitamin B12 (200.0-944.0) pg/mL Microbiology - Last 24 Hours (Table) 12/18/22 10:30 Urine Culture - Preliminary Urine,Voided Gram Neg Bacilli 12/18/22 10:30 Blood Culture - Preliminary Blood No Growth after 24 hours 12/18/22 10:45 Blood Culture - Preliminary Blood No Growth after 24 hours Assessment and Plan Assessment: Altered mental status possible metabolic encephalopathy secondary to infection.improving Acute urinary tract infection Sepsis secondary to above Acute kidney injury likely prerenal Lactic acidosis Elevated troponin level Type II TN due to sepsis Moderate to severe protein calorie malnutrition Hypertension Parkinson's disease Memory impairment History of fall and hip fracture in September 2022 Depression Prior history of smoking DVT prophylaxis heparin subcu Plan: Continue with antibiotics in the form of cefepime. Follow-up final urine culture and blood culture report. Patient was given 2 L fluid bolus in the ER. Improvement in blood pressure. Ordered influenza A B and COVID-19 PCR. Blood pressure medications on hold. Continue to follow closely. Prognosis guarded at this time. Patient was seen by cardiology. 2D echocardiogram showed normal EF. ID is on board. Time with Patient: Greater than 30
--- NOTE | 2022-12-22 02:53 | P.PN ---
Subjective Progress Note Date: 12/20/22 Patient is a 87-year-old female with a known history of hypertension, diabetes type 2 [id number], dementia, Parkinson's disease and history of fall in September 2022 with a left hip fracture status post surgery was sent to ER from [facility] due to complaints of altered mental status. As per EMS report patient was having breakfast this morning when she had a brief episode of not responding and altered mental status and was drooling. Patient usually awake alert and oriented x2 at baseline. As per EMS report patient was febrile in route to the hospital. No focal neurological deficit was noted. No weakness or seizures. No bowel or bladder incontinence. Currently patient is drowsy and altered and could not provide any history. On admission patient was tachycardic with heart rate 101 Tmax 100.4 and pulse ox 98% on room air and blood pressure 73/39. Patient was given total of 3 L IV fluid bolus with improvement in blood pressure. Chest x-ray showed chronic changes and mild cardiomegaly without acute pulmonary process. CT head showed BeeGentle A2 and nonspecific white matter changes with no evidence of acute hemorrhage or mass effect. EKG showed sinus rhythm with occasional supraventricular premature complexes. Laboratory data showed WBC 18.2 hemoglobin 13.7 and platelets 193 MCV 102.8 Sodium 141 potassium 4.0 chloride 107 bicarb is 22 BUN 24 and creatinine 1.52 and blood sugar is 209 and lactic acid 2.2 and troponin 0.074, 0.111 Urinalysis showed turbid with 1+ protein small blood large leukocyte esterase with related WBCs. 12/20/2022 Patient is currently resting in bed. Patient is more awake and oriented. No complaints of chest pain or shortness of breath. No nausea vomiting or abdominal pain or diarrhea. Patient is being continued on antibiotics for urinary tract infection. Patient was seen by cardiology. 2D echocardiogram showed normal LV systolic function. Laboratory data showed WBC 11.9, hemoglobin 10.8 and platelets 189 sodium 137 potassium 3.7 chloride 112 bicarb is 17 BUN 19 and creatinine 1.06 and blood sugar is 114 calcium 7.9. ID is on board. Urine culture is pending. 12/20/2022 Patient is resting in bed. Awake alert and oriented x1-2. Mentation is at baseline. Underlying dementia. No complaints of chest pain or shortness of breath. Currently on room air. No cough or sputum production. Urine culture showed gram-negative bacilli and patient is being continued on antibiotics cefepime. ID is on board. Laboratory data reviewed. Blood sugar is controlled. Current medications reviewed. Objective - Vital Signs Vital signs: Vital Signs Temp 98.5 F 12/20/22 20:00 Pulse 61 12/20/22 20:00 Resp 16 12/20/22 20:00 BP 115/71 12/20/22 20:00 Pulse Ox 97 12/20/22 20:00 FiO2 Intake & Output 12/20/22 12/20/22 12/21/22 06:59 18:59 06:59 Intake Total 2009 Output Total 1200 900 100 Balance -1200 1110 -100 Intake: Intake, IV Titration 1500 Amount Cefepime 1 gm In Sodium 50 Chloride 0.9% 50 ml @ 100 mls/hr IVPB Q12HR N[facility]HA Rx #:[id number] Sodium Chloride 0.9% 1, 1200 000 ml @ 75 mls/hr IV . [id number] NISHA Rx#:[id number] Vancomycin 750 mg In 250 Sodium Chloride 0.9% 250 ml @ 125 mls/hr IVPB Q24H NISHA Rx#:[id number] Oral 510 Output: Urine 900 800 Stool 300 100 100 - Exam PHYSICAL EXAMINATION: Patient is lying in the bed comfortably, no acute distress, awake alert and oriented x1-2.. HEENT: Normocephalic. Neck is supple. Pupils reactive. Nostrils clear. Oral cavity is moist. Neck reveals no JVD, carotid bruits, or thyromegaly. CHEST EXAMINATION: Trachea is central. Symmetrical expansion. Lung amador clear to auscultation and percussion. CARDIAC: Normal S1, S2 with no gallops. No murmurs ABDOMEN: Soft. Bowel sounds present. Nontender. No organomegaly. No abdominal bruits. Extremities: reveal no edema. No clubbing or cyanosis Neurologically awake, alert, oriented x 1-2. Able to move extremities while in bed. Skin: No rash or skin lesions. Psychiatric: Coperative. Could not be assessed completely, Musculoskeletal: No joint swelling or deformity. - Labs CBC & Chem 7: 12/21/22 06:14 12/21/22 16:14 Labs: Abnormal Lab Results - Last 24 Hours (Table) 12/20/22 12/20/22 12/20/22 Range/Units 06:03 11:47 16:55 POC Glucose (mg/dL) 115 H 129 H 159 H (70-110) mg/dL 12/20/22 Range/Units 20:16 POC Glucose (mg/dL) 160 H (70-110) mg/dL Microbiology - Last 24 Hours (Table) 12/18/22 10:30 Urine Culture - Final Urine,Voided Klebsiella oxytoca 12/18/22 10:30 Blood Culture - Preliminary Blood No Growth after 48 hours 12/18/22 10:45 Blood Culture - Preliminary Blood No Growth after 48 hours Assessment and Plan Assessment: Altered mental status possible metabolic encephalopathy secondary to infection.improving Acute urinary tract infection Sepsis secondary to above Acute kidney injury likely prerenal Lactic acidosis Elevated troponin level Type II HI due to sepsis Moderate to severe protein calorie malnutrition Hypertension Parkinson's disease Memory impairment History of fall and hip fracture in September 2022 Depression Prior history of smoking DVT prophylaxis heparin subcu Plan: Continue with antibiotics in the form of cefepime. Urine culture showed gram- negative bacilli. Patient was given 2 L fluid bolus in the ER. Improvement in blood pressure. Ordered influenza A B and COVID-19 PCR. Blood pressure medications on hold. Continue to follow closely. Prognosis guarded at this time. Patient was seen by cardiology. 2D echocardiogram showed normal EF. ID is on board. Time with Patient: Greater than 30
--- NOTE | 2022-12-22 02:56 | P.PN ---
Subjective Progress Note Date: 12/21/22 Patient is a 87-year-old female with a known history of hypertension, diabetes type 2 [id number]-xvebxndyk, dementia, Parkinson's disease and history of fall in September 2022 with a left hip fracture status post surgery was sent to ER from [facility] due to complaints of altered mental status. As per EMS report patient was having breakfast this morning when she had a brief episode of not responding and altered mental status and was drooling. Patient usually awake alert and oriented x2 at baseline. As per EMS report patient was febrile in route to the hospital. No focal neurological deficit was noted. No weakness or seizures. No bowel or bladder incontinence. Currently patient is drowsy and altered and could not provide any history. On admission patient was tachycardic with heart rate 101 Tmax 100.4 and pulse ox 98% on room air and blood pressure 73/39. Patient was given total of 3 L IV fluid bolus with improvement in blood pressure. Chest x-ray showed chronic changes and mild cardiomegaly without acute pulmonary process. CT head showed BeeGentle A2 and nonspecific white matter changes with no evidence of acute hemorrhage or mass effect. EKG showed sinus rhythm with occasional supraventricular premature complexes. Laboratory data showed WBC 18.2 hemoglobin 13.7 and platelets 193 MCV 102.8 Sodium 141 potassium 4.0 chloride 107 bicarb is 22 BUN 24 and creatinine 1.52 and blood sugar is 209 and lactic acid 2.2 and troponin 0.074, 0.111 Urinalysis showed turbid with 1+ protein small blood large leukocyte esterase with related WBCs. 12/20/2022 Patient is currently resting in bed. Patient is more awake and oriented. No complaints of chest pain or shortness of breath. No nausea vomiting or abdominal pain or diarrhea. Patient is being continued on antibiotics for urinary tract infection. Patient was seen by cardiology. 2D echocardiogram showed normal LV systolic function. Laboratory data showed WBC 11.9, hemoglobin 10.8 and platelets 189 sodium 137 potassium 3.7 chloride 112 bicarb is 17 BUN 19 and creatinine 1.06 and blood sugar is 114 calcium 7.9. ID is on board. Urine culture is pending. 12/20/2022 Patient is resting in bed. Awake alert and oriented x1-2. Mentation is at baseline. Underlying dementia. No complaints of chest pain or shortness of breath. Currently on room air. No cough or sputum production. Urine culture showed gram-negative bacilli and patient is being continued on antibiotics cefepime. ID is on board. Laboratory data reviewed. Blood sugar is controlled. 12/21/2022 Patient is resting in bed. Awake alert and oriented x1-2. Mentation is at baseline. No complaints of chest pain or shortness of breath. Patient is on room air. Blood pressure is elevated will be started back on Norvasc and metoprolol as per her home regimen. Urine culture showed Klebsiella oxytocin. Patient is on cefepime. ID is on board. Laboratory data showed sodium 138 potassium 2.8, which is being replaced chloride 110 bicarb is 22 BUN 10 and creatinine 0.69 and blood sugar is 145 and calcium 7.6. Anticipate discharge back to [facility] in the next 24 hours. Current medications reviewed. Objective - Vital Signs Vital signs: Vital Signs Temp 97 F L 12/21/22 12:00 Pulse 57 L 12/21/22 12:00 Resp 16 12/21/22 12:00 BP 161/75 12/21/22 12:00 Pulse Ox 96 12/21/22 12:00 FiO2 Intake & Output 12/20/22 12/21/22 12/21/22 18:59 06:59 18:59 Intake Total 2009 90 Output Total 900 1300 Balance 1110 -1300 90 Intake: Intake, IV Titration 1500 Amount Cefepime 1 gm In Sodium 50 Chloride 0.9% 50 ml @ 100 mls/hr IVPB Q12HR N[facility] Rx #:[id number] Sodium Chloride 0.9% 1, 1200 000 ml @ 75 mls/hr IV . [id number] NISHA Rx#:[id number] Vancomycin 750 mg In 250 Sodium Chloride 0.9% 250 ml @ 125 mls/hr IVPB Q24H NISHA Rx#:[id number] Oral 510 90 Output: Urine 800 1100 Stool 100 200 - Exam PHYSICAL EXAMINATION: Patient is lying in the bed comfortably, no acute distress, awake alert and oriented x1-2.. HEENT: Normocephalic. Neck is supple. Pupils reactive. Nostrils clear. Oral cavity is moist. Neck reveals no JVD, carotid bruits, or thyromegaly. CHEST EXAMINATION: Trachea is central. Symmetrical expansion. Lung amador clear to auscultation and percussion. CARDIAC: Normal S1, S2 with no gallops. No murmurs ABDOMEN: Soft. Bowel sounds present. Nontender. No organomegaly. No abdominal bruits. Extremities: reveal no edema. No clubbing or cyanosis Neurologically awake, alert, oriented x 1-2. Able to move extremities while in bed. Skin: No rash or skin lesions. Psychiatric: Coperative. Could not be assessed completely, Musculoskeletal: No joint swelling or deformity. - Labs CBC & Chem 7: 12/21/22 06:14 12/21/22 16:14 Labs: Abnormal Lab Results - Last 24 Hours (Table) 12/20/22 12/20/22 12/21/22 Range/Units 16:55 20:16 05:45 RBC (3.80-5.40) m/uL Hgb (11.4-16.0) gm/dL Hct (34.0-46.0) % MCV (80.0-100.0) fL Potassium (3.5-5.1) mmol/L Chloride (98-107) mmol/L Glucose (74-99) mg/dL POC Glucose (mg/dL) 159 H 160 H 176 H (70-110) mg/dL Calcium (8.4-10.2) mg/dL 12/21/22 12/21/22 12/21/22 Range/Units 06:14 06:14 11:53 RBC 3.10 L (3.80-5.40) m/uL Hgb 10.5 L (11.4-16.0) gm/dL Hct 31.0 L (34.0-46.0) % MCV 100.2 H (80.0-100.0) fL Potassium 2.8 L (3.5-5.1) mmol/L Chloride 110 H (98-107) mmol/L Glucose 145 H (74-99) mg/dL POC Glucose (mg/dL) 130 H (70-110) mg/dL Calcium 7.6 L (8.4-10.2) mg/dL Microbiology - Last 24 Hours (Table) 12/18/22 10:30 Blood Culture - Preliminary Blood No Growth after 72 hours 12/18/22 10:45 Blood Culture - Preliminary Blood No Growth after 72 hours 12/18/22 10:30 Urine Culture - Final Urine,Voided Klebsiella oxytoca Assessment and Plan Assessment: Altered mental status possible metabolic encephalopathy secondary to infection.improving Acute Klebsiella oxytoca urinary tract infection Sepsis secondary to above Acute kidney injury likely prerenal Lactic acidosis Elevated troponin level Type II TX due to sepsis Moderate to severe protein calorie malnutrition Hypertension Parkinson's disease Memory impairment History of fall and hip fracture in September 2022 Depression Prior history of smoking DVT prophylaxis heparin subcu Plan: Continue with antibiotics in the form of cefepime. Urine culture showed Klebsiella oxytoca. Patient was given 2 L fluid bolus in the ER. Improvement in blood pressure. Ordered influenza A B and COVID-19 PCR. Blood pressure medications started back . Continue to follow closely. Prognosis guarded at this time. Patient was seen by cardiology. 2D echocardiogram showed normal EF. ID is on board. Time with Patient: Greater than 30
[2022-12-22 06:15] LABS: Glucose,Whole Blood 149 mg/dL (70-110)
[2022-12-22] MEDS ORDERED: METOPROLOL SUCCINATE (ER) 25 MG TAB.ER.24H PO SCH (08:00)
[2022-12-22] MEDS: HEPARIN SODIUM,PORCINE/PF 5,000 UNIT/0.5 ML SYRINGE SQ SCH (08:51)
[2022-12-22] MEDS: CEFEPIME 2 GM in SODIUM CHLORIDE 0.9% 100 ML IVPB SCH (08:51)
[2022-12-22] MEDS: VIT A,C & E-LUTEIN-MINERALS 1 EACH TAB PO SCH (08:52)
[2022-12-22] MEDS: CARBIDOPA-LEVODOPA 25-100 MG 1 EACH TAB PO SCH ×2 (08:52→12:14)
[2022-12-22] MEDS: carBAMazepine 200 MG TAB PO SCH (08:52)
[2022-12-22] MEDS: ARTIFICIAL TEARS-HYPROMELLOSE DROPS 15 ML BTL BOTH EYES SCH ×2 (08:52→12:14)
[2022-12-22] MEDS: FAMOTIDINE 20 MG TAB PO SCH (08:52)
[2022-12-22] MEDS: SODIUM CHLORIDE 0.9% 1,000 ML IV SCH (09:04)
[2022-12-22 09:06] VITALS: BP 152/79; PULSE 83; TEMP 98.2
[2022-12-22 11:32] LABS: Basophils % (A) 0 %; Eosinophils # (A) 0.1 k/uL (0-0.7); Eosinophils % (A) 1 %; HGB 11.4 gm/dL (11.4-16.0); Lymphocytes # (A) 1.6 k/uL (1.0-4.8); Lymphocytes % (A) 19 %; MCH 34.4 pg (25.0-35.0); MCHC 34.6 g/dL (31.0-37.0); MCV 99.4 fL (80.0-100.0); Mean Platelet Volume 8.3; Monocytes # (A) 0.6 k/uL (0-1.0); Monocytes % (A) 6 %; Neutrophils # (A) 6.3 k/uL (1.3-7.7); Neutrophils % (A) 72 %; Platelet Count 170 k/uL (150-450); RBC 3.32 m/uL (3.80-5.40); RDW 14.5 % (11.5-15.5); WBC 8.7 k/uL (3.8-10.6)
[2022-12-22 11:51] LABS: Glucose,Whole Blood 157 mg/dL (70-110)
[2022-12-22 11:54] LABS: African American GFR (CKD) >90 (>60 ml/min/1.73 sqM); Anion Gap 5 mmol/L; Blood Urea Nitrogen 11 mg/dL (7-17); Calcium 7.8 mg/dL (8.4-10.2); Carbon Dioxide 22 mmol/L (22-30); Chloride 110 mmol/L (98-107); Glucose 138 mg/dL (74-99); Non-African American GFR(CKD) 79 (>60 ml/min/1.73 sqM); Potassium 3.3 mmol/L (3.5-5.1); Sodium 137 mmol/L (137-145)
[2022-12-22] MEDS: ASPIRIN 81 MG PO SCH (12:14)
--- NOTE | 2022-12-22 13:51 | P.DS ---
Providers Date of admission: 12/18/22 13:56 Expected date of discharge: 12/22/22 Attending physician: [place] Vines Consults: 12/18/22 23:18 Consult Physician Routine Consulting Provider: Spenser Rueda Consult Reason/Comments: Sepsis Do you want consulting provider notified?: Yes, Notify in am Primary care physician: Octaviano Perea [facility] Course: Final diagnosis Altered mental status possible metabolic encephalopathy secondary to infection.improving Acute Klebsiella oxytoca urinary tract infection Sepsis secondary to above Acute kidney injury likely prerenal, improving Lactic acidosis, secondary to UTI Elevated troponin level Type II NM due to sepsis Moderate to severe protein calorie malnutrition Hypertension Parkinson's disease Memory impairment History of fall and hip fracture in September 2022 Depression Prior history of smoking DVT prophylaxis No code Discharge disposition Patient is being discharged in a stable condition with guarded prognosis to [facility] . Patient will follow-up with Dr. Perea in the outpatient setting upon discharge. Patient is to continue on oral Cipro 500 mg twice daily for the next 5 days to complete the course. Total time taken is greater than 35 minutes. Hospital course This is a 87-year-old female who was recently admitted with altered mental status and was found to have an acute urinary tract infection, present on a dmission. Urine shows Klebsiella and will continue on oral Cipro per ID recommendations. Please refer to other consultation notes for further HPI and patient will be returning to [facility] today. Currently no reports of chest pain, shortness of breath, or palpitations. Patient is afebrile. No reports of nausea or vomiting and patient is tolerating diet. Patient will be going to [facility] today. Guarded prognosis. Physical exam: Gen: This is a 87-year-old female who is awake, alert and oriented 1, thin built, elderly appearing HEENT: Head is atraumatic, normocephalic. Pupils equal, round. Sclerae is anicteric. NECK: Supple. No JVD. No lymphadenopathy. No thyromegaly. LUNGS: Clear to auscultation. No wheezes or rhonchi. No intercostal retractions. HEART: S1, S2 are muffled ABDOMEN: Soft. Bowel sounds are present. No masses. No tenderness. EXTREMITIES: No pedal edema. No calf tenderness. NEUROLOGICAL: Patient is awake, alert and oriented x1. Cranial nerves 2 through 12 are grossly intact. Diffusely weak Please refer to medication reconciliation sheet for a list of medications. The impression and plan of care has been dictated by Hiral Romo, Nurse Practitioner as directed. Dr. Kevin MD I have performed a history and examination and MDM of this patient, discussed the same with the dictator, and agree with the dictator's assessment and plan as written ,documented as a scribe. Based on total visit time, I have performed more than 50% of the visit. Patient Condition at Discharge: Fair Plan - Discharge Summary Discharge Rx Participant: No New Discharge Prescriptions: New Furosemide [Lasix] 20 mg PO DAILY #30 tab Ciprofloxacin HCl [Cipro] 500 mg PO BID 5 Days #10 tab Continue carBAMazepine [TEGretol] 200 mg PO BID@0800,1999 Famotidine 20 mg PO BID@0800,1999 Metoprolol Succinate (ER) [Toprol XL] 25 mg PO DAILY@0800 Irbesartan [Avapro] 150 mg PO DAILY@0800 Vit C/E/Zn/Coppr/Lutein/Zeaxan [Preservision Areds 2 Chew Tab] 1 tab PO BID@0800,1999 Prevagen Chew Mixed Barber 30 1 tab PO DAILY@0800 Magnesium Hydroxide [Milk of Magnesia Concentrate] 7,200 mg PO DAILY PRN PRN Reason: Constipation amLODIPine [Norvasc] 2.5 mg PO HS@2100 Carbidopa-Levodopa 25-100 mg [Sinemet 25-100 mg] 1 tab PO TID@0800,1300,2000 Aspirin 81 mg PO DAILY@1200 Refresh Optive Gel Drops 1 drop BOTH EYES TID@0800,1300,1999 Denosumab [Prolia] 60 mg SQ DIRECTED Acetaminophen Tab [Tylenol] 650 mg PO Q6H PRN PRN Reason: Mild Pain Or Fever > 100.5 bisacodyL [Dulcolax] 10 mg RECTAL DAILY PRN PRN Reason: Constipation Na Phos,M-B/Na Phos,Di-Ba [Fleet Adult] 133 ml RECTAL DAILY PRN PRN Reason: Constipation Ensure Enlive 120 - 237 ml PO TID@0800,1200,1700 Sennosides-Docusate Sodium [Senokot-S] 2 tab PO DAILY@0800 Magic Cup 118 ml PO DAILY@1700 Changed HYDROcodone/APAP 5-325MG [[place] 5-325] 1 tab PO Q4H PRN #3 tab PRN Reason: Pain Discontinued Furosemide [Lasix] 20 mg PO DAILY@0800 Discharge Medication List Carbidopa-Levodopa 25-100 mg [Sinemet 25-100 mg] 1 tab PO TID@0800,1300,199905/21/22 [History] Famotidine 20 mg PO BID@0800,199905/21/22 [History] Irbesartan [Avapro] 150 mg PO DAILY@0805/21/22 [History] Metoprolol Succinate (ER) [Toprol XL] 25 mg PO DAILY@0805/21/22 [History] Vit C/E/Zn/Coppr/Lutein/Zeaxan [Preservision Areds 2 Chew Tab] 1 tab PO BID@0800,199905/21/22 [History] carBAMazepine [TEGretol] 200 mg PO BID@0800,199905/21/22 [History] Aspirin 81 mg PO DAILY@1200 07/16/22 [History] Acetaminophen Tab [Tylenol] 650 mg PO Q6H PRN 09/27/22 [History] Denosumab [Prolia] 60 mg SQ DIRECTED 09/27/22 [History] Prevagen Chew Mixed Barber 30 1 tab PO DAILY@0809/27/22 [History] Refresh Optive Gel Drops 1 drop BOTH EYES TID@0800,1300,199909/27/22 [History] Ensure Enlive 120 - 237 ml PO TID@0800,1200,1700 12/18/22 [History] Magic Cup 118 ml PO DAILY@1700 12/18/22 [History] Magnesium Hydroxide [Milk of Magnesia Concentrate] 7,200 mg PO DAILY PRN 12/18/22 [History] Na Phos,M-B/Na Phos,Di-Ba [Fleet Adult] 133 ml RECTAL DAILY PRN 12/18/22 [History] Sennosides-Docusate Sodium [Senokot-S] 2 tab PO DAILY@0800 12/18/22 [History] amLODIPine [Norvasc] 2.5 mg PO HS@2100 12/18/22 [History] bisacodyL [Dulcolax] 10 mg RECTAL DAILY PRN 12/18/22 [History] Ciprofloxacin HCl [Cipro] 500 mg PO BID 5 Days #10 tab 12/22/22 [Rx] Furosemide [Lasix] 20 mg PO DAILY #30 tab 12/22/22 [Rx] HYDROcodone/APAP 5-325MG [[place] 5-325] 1 tab PO Q4H PRN #3 tab 12/22/22 [Rx] Follow up Appointment(s)/Referral(s): Octaviano Perea MD [Primary Care Provider] - 1-2 days Activity/Diet/Wound Care/Special Instructions: Patient is going to [facility] as tolerated Continue with oral Cipro until finished Continue dysphasia 3 chopped diet with aspiration cautions and supervision with meals Discharge Disposition: TRANSFER TO SNF/ECF
--- NOTE | 2022-12-24 14:40 | P.PN ---
Subjective Progress Note Date: 12/22/22 Principal diagnosis: Urinary tract infection Patient is a 87-year-old female with a past medical history significant for diabetes mellitus hypertension breast cancer memory impairment [facility] resident patient was [facility] to the [facility] from the local [facility] via EMS for evaluation of mental status changes , patient did have a low-grade fever positive UA concerning for symptomatic UTI. On today's evaluation that is 12/22/2022 the patient continues to be afebrile pa tient is breathing comfortably on room air, the patient denies chest pain shortness of breath or cough patient denies nausea no vomiting no abdominal pain or diarrhea Objective - Vital Signs Vital signs: Vital Signs Temp 98.2 F 12/22/22 08:50 Pulse 83 12/22/22 08:50 Resp 16 12/22/22 08:50 BP 152/79 12/22/22 08:50 Pulse Ox 94 L 12/22/22 08:50 FiO2 Intake & Output 12/21/22 12/22/22 12/22/22 18:59 06:59 18:59 Intake Total 1288 Output Total 900 1500 Balance 388 -1500 Intake: Intake, IV Titration 900 Amount Cefepime 2 gm In Sodium 100 Chloride 0.9% 100 ml @ 25 mls/hr IVPB Q12HR [facility] Rx #:[id number] Potassium Chloride 20 meq 200 In Water For Injection 1 100ml.bag @ 50 mls/hr IVPB Q2H NISHA Rx#: [id number] Sodium Chloride 0.9% 1, 600 000 ml @ 75 mls/hr IV . [id number] NISHA Rx#:[id number] Oral 388 Output: Urine 900 1500 Other: # Bowel Movements 1 1 - Exam GENERAL DESCRIPTION: An elderly female lying in bed in no distress RESPIRATORY SYSTEM: Unlabored breathing , decreased breath sounds at bases HEART: S1 S2 regular rate and rhythm , ABDOMEN: Soft , no tenderness EXTREMITIES: No edema feet - Labs CBC & Chem 7: 12/22/22 10:10 12/22/22 10:10 Labs: Abnormal Lab Results - Last 24 Hours (Table) 12/21/22 12/21/22 12/21/22 Range/Units 16:14 16:42 20:48 RBC (3.80-5.40) m/uL Hct (34.0-46.0) % Potassium (3.5-5.1) mmol/L Chloride 112 H (98-107) mmol/L Glucose 157 H (74-99) mg/dL POC Glucose (mg/dL) 155 H 195 H (70-110) mg/dL Calcium 7.8 L (8.4-10.2) mg/dL 12/22/22 12/22/22 12/22/22 Range/Units 06:14 10:10 10:10 RBC 3.32 L (3.80-5.40) m/uL Hct 33.0 L (34.0-46.0) % Potassium 3.3 L (3.5-5.1) mmol/L Chloride 110 H (98-107) mmol/L Glucose 138 H (74-99) mg/dL POC Glucose (mg/dL) 149 H (70-110) mg/dL Calcium 7.8 L (8.4-10.2) mg/dL 12/22/22 Range/Units 11:32 RBC (3.80-5.40) m/uL Hct (34.0-46.0) % Potassium (3.5-5.1) mmol/L Chloride (98-107) mmol/L Glucose (74-99) mg/dL POC Glucose (mg/dL) 157 H (70-110) mg/dL Calcium (8.4-10.2) mg/dL Microbiology - Last 24 Hours (Table) 12/18/22 10:30 Blood Culture - Preliminary Blood No Growth after 72 hours 12/18/22 10:45 Blood Culture - Preliminary Blood No Growth after 72 hours Assessment and Plan (1) Urinary tract infection Status: Acute Code(s): N39.0 - URINARY TRACT INFECTION, SITE NOT SPECIFIED SNOMED Code(s): 73240166 Plan: 1patient to the hospital with sepsis in this patient did have fever elevated white count elevated lactic acid positive UA source likely urinary and likely from enteric gram-negative pathogen keeping in mind [facility] resident will need to cover for resistant gram-negative. 2patient urine cultures have been finalized with Klebsiella that is resistant to ceftriaxone but sensitive to cefepime, patient she has shown clinical improvement and will finish therapy with oral Cipro discussed with hospitalist who admitted her Time with Patient: Less than 30
== END 2022-12-22 15:42 | DRG 871 ==
LOC: EC 09:36 → 3SCARD 13:56
PROVIDERS: ADMIT Internal Medicine; ATTEND Internal Medicine
PROC: B246ZZ4 Ultrasonography of Right and Left Heart, Transesophageal (ICD-10-PCS; principal; 2022-12-19)
DX: A41.59 Other Gram-negative sepsis (principal); E43 Unspecified severe protein-calorie malnutrition; G93.41 Metabolic encephalopathy; I21.A1 Myocardial infarction type 2; Z68.1 Body mass index [BMI] 19.9 or less, adult; N39.0 Urinary tract infection, site not specified; N17.9 Acute kidney failure, unspecified; F02.83 Dementia in other diseases classified elsewhere, unspecified severity, with mood disturbance; I31.39 Other pericardial effusion (noninflammatory); G20 Parkinson's disease; Z20.822 Contact with and (suspected) exposure to COVID-19; I10 Essential (primary) hypertension; F32.A Depression, unspecified; I08.2 Rheumatic disorders of both aortic and tricuspid valves; I49.1 Atrial premature depolarization; M81.0 Age-related osteoporosis without current pathological fracture; Z88.2 Allergy status to sulfonamides; Z88.1 Allergy status to other antibiotic agents; Z79.82 Long term (current) use of aspirin; Z79.899 Other long term (current) drug therapy; Z85.3 Personal history of malignant neoplasm of breast; Z91.81 History of falling; Z87.19 Personal history of other diseases of the digestive system
CPT/HCPCS: 36415; 51702; 70450; 71046; 80048; 80053; 80202; 81001; 82140; 82565; 82607; 82747; 83605; 84484; 85025; 85610; 85730; 87040; 87077; 87086; 87186; 87502; 87635; 93005; 93306; 94760; 96361; 96365; 96366; 96375; 99291